=== PATIENT | female | born 1980 | race Caucasian/White ===

== ENCOUNTER 2020-04-23 22:50 | Inpatient (IN) | payer MEDICARE ==
[~2020-04-23] VITALS: Ht 149.9 cm; Wt 112.0 kg
[~2020-04-23 22:50] MED LIST: BACTRIM DS TAB1 EACH; CLINDAMYCIN HCL75 MG; DOXYCYCLINE HY100 MG; PAXIL10 MG; XANAX2 MG PO
--- OUTSIDE RECORDS SUMMARY | 2020-04-23 22:54 | XMS REPORT | Summary of Care ---
Author Author [facility]patient [facility] - [facility] Organization [facility] Address Unknown Phone Unavailable Encounter HQ Encntr_korin(FIN) [id number] Date(s): 06/27/15 - 06/27/15 [facility] Outpatient Imaging - [place] [address] [address] [phone] Discharge Disposition: Home Attending Physician: Levi Lynch MD Vital Signs No data available for this section Problem List Condition Effective Dates Status Health Status Informan t Anxiety(Confirmed) Resolved Back pain, Resolved chronic(Confirmed) Bipolar(Confirmed) Resolved Migraine(Confirmed) Resolved Allergies, Adverse Reactions, Alerts Substance Reaction Severity Status NKDA Active Medications No data available for this section Results No data available for this section Immunizations No data available for this section Procedures Procedure Date Related Diagnosis Body Site Adenoidectomy section Eustachian tuboplasty Gastric operation Tonsillectomy Tubal ligation Social History Social History Type Response Alcohol Never, Previous treatment: None. Alcohol use interferes with work or home: No. Drinks more than intended: No. Ot hers hurt by drinking: No. Ready to change: No. Household alcohol concerns : No. Smoking Status Light tobacco smoker; Expos ure to Tobacco Smoke None; Cigarette Smoking Last 365 Days No; Reg Smoking Cessation Counseling No Assessment and Plan No data available for this section
--- OUTSIDE RECORDS SUMMARY | 2020-04-23 22:54 | XMS REPORT | Continuity of Care Document ---
Author Author [facility] t Organization [facility] Address [address] [place] [address] Phone Unavailable Care Team Providers Care Evaluator Transfer Students Name Role Phone Levi Lynch Attphys Conrad Gordon Attphys Evie Christianson Attphys [phone] Payers Payer Name Policy Type Policy Number Effective Date Expiration Date S ource Problems Condition Name Condition Details Condition Category Status Onset Date Resolution Date Last Treatment Date Treating Clinician Comments Source NECK PAIN NECK PAIN Active 07/24/2014 [facility] Diagnosis Active 2014-07-24 00:00:00 2014-08-21 10:08:00 Mina Steiner ABDOMINAL/NECK PAIN ABDO SHAYNE/NECK PAIN Active 07/23/2014 [facility] Diagnosis Active 2014-07-23 00:00:00 2014-08-22 13:35:00 Mina Steiner Anxiety (finding) Anxi ety (finding) Resolved Problem 06/30/2015 [facility] Problem Resolved 2015-06-30 00:54:58 Mina Steiner Chronic back pain (disorder) C hronic back pain (disorder) Resolved Problem 06/30/2015 [facility] Problem Resolved 2015-06-30 00:54:58 Jorge Alberto Steiner Bipolar (qualifier value) Bipo lar (qualifier value) Resolved Problem 06/30/2015 [facility] Problem Resolved 2015-06-30 00:54:58 Mina Steiner Migraine (disorder) Migr tai (disorder) Resolved Problem 06/30/2015 [facility] Problem Resolved 2015-06-30 00:54:58 [facility] Discharge Diagnosis: Neck pain on left side Discharge Diagnosis: Neck pain on left side 07/24/2014 07/27/2014 [facility] Problem 2014-07-24 05:00:00 2014-07-27 02:48:09 2014-07-27 02:48:09 [facility] Discharge Diagnosis: Nausea & vomiting Discharge Diagnosis: Nausea & vomiting 07/23/2014 07/26/2014 [facility] Problem 2014-07-23 05:00:00 2014-07-26 00:10:18 2014-07-26 00:10:18 [facility] Discharge Diagnosis: Abdominal pain Discharge Diagnosis: Abdominal pain 07/23/2014 07/26/2014 [facility] Problem 2014-07-23 05:00:00 2014-07-26 00:10:18 2014-07-26 00:10:18 [facility] Allergies, Adverse Reactions, Alerts Allergy Name Allergy Type Status Severity Reaction(s) Onset Date Inacti ve Date Treating Clinician Comments Source No Known Allergies DA Active U 2017-12-10 00:00:00 [facility] Social History Social Habit Start Date Stop Date Quantity Comments Source Social History 2014-03-06 18:36:25 2014-03-06 18:36:25 [facility] Medications Ordered Medication Name Filled Medication Name Start Date Stop Da te Current Medication? Ordering Clinician Indication Dosage Frequency Signature (SIG) Comments Components Source GI cocktail 2014-07-24 15:42:00 No 30 mL, Route: PO, Dosing Weight 100, kg, ONCE, STAT, Start date: 07/24/14 10:42:00, Stop date: 07/24/14 10:42:00 [facility] Ibuprofen 2014-07-24 15:22:00 No 600 mg, Route: PO, Drug form: TAB, ONCE, Dosing Weight 100, kg, Priority: STAT, Start date: 07/24/14 10:22:00, Stop date: 07/24/14 10:22:00 [facility] Dilaudid 2014-07-23 21:09:00 No 1 mg, Route: IVP, ONCE, Dosing Weight 100, kg, Priority: STAT, Start date: 07/23/14 16:09:00, Stop date: 07/23/14 16:09:00 [facility] Ondansetron 4 MG Oral Tablet [Zofran] 2014-07-23 20:54:00 Y es 4 mg = 1 tab, PO, BID, Nausea, # 10 tab, 0 Refill(s) [facility] Acetaminophen 325 MG / Hydrocodone Belle trate 7.5 MG Oral Tablet [[place] 7.5/325] 2014-07-23 20:53:00 Yes 1 tab, PO, Q4H, for pain, # 10 tab, 0 Refill(s) [facility] Zofran 2014-07-23 17:44:00 No 4 mg, Route: IVP, Drug form: INJ, ONCE, Dosing Weight 100, kg, Priority: STAT, Start date: 07/23/14 12:44:00, Stop date: 07/23/14 12:44:00 [facility] Dilaudid 2014-07-23 17:43:00 No 1 mg, Route: IVP, ONCE, Dosing Weight 100, kg, Priority: STAT, Start date: 07/23/14 12:43:00, Stop date: 07/23/14 12:43:00 [facility] Ondansetron 2014-07-23 15:08:00 No 4 mg, Route: IVP, ONCE, Dosing Weight 100, kg, Priority: STAT, Start date: 07/23/14 10:08:00, Stop date: 07/23/14 10:08:00 [facility] Hydromorphone 2014-07-23 15:08:00 No 1 mg, Route: IVP, ONCE, Dosing Weight 100, kg, Priority: STAT, Start date: 07/23/14 10:08:00, Stop date: 07/23/14 10:08:00 [facility] Sodium Chloride 0.154 MEQ/ML Injectable Solution 2014-07-23 15:0 8:00 No 1,000 mL, Infuse Over: 1 hr, Route: IV, ONCE, Priority: STAT, Dosing Weight 100 kg, Start date: 07/23/14 10:08:00, Duration: 1 doses or times, Stop date: 07/23/14 10:08:00 [facility] Saline Flush 0.9% 2014-07-23 15:08:00 No Notes: (Same as: BD Posiflush) [facility] Vital Signs Vital Name Observation Time Observation Value Comments Source Systolic (mm Hg) 2014-07-24 16:34:00 [facility] Diastolic (mm Hg) 2014-07-24 16:34:00 [facility] Respitory Rate 2014-07-24 16:34:00 [facility] Heart Rate 2014-07-24 16:34:00 [facility] Temperature Oral (F) 2014-07-24 16:34:00 98.5 F [facility] Weight 2014-07-24 14:30:00 [facility] BMI Calculated 2014-07-24 14:30:00 [facility] Height 2014-07-24 14:30:00 149.86 cm [facility] Systolic (mm Hg) 2014-07-24 14:30:00 [facility] Temperature Oral (F) 2014-07-24 14:30:00 98.2 F [facility] Diastolic (mm Hg) 2014-07-24 14:30:00 [facility] Respitory Rate 2014-07-24 14:30:00 [facility] Heart Rate 2014-07-24 14:30:00 [facility] Heart Rate 2014-07-23 17:50:00 [facility] Respitory Rate 2014-07-23 17:50:00 [facility] Diastolic (mm Hg) 2014-07-23 17:50:00 [facility] Systolic (mm Hg) 2014-07-23 17:50:00 [facility] Diastolic (mm Hg) 2014-07-23 16:59:00 [facility] Systolic (mm Hg) 2014-07-23 16:59:00 [facility] Respitory Rate 2014-07-23 16:59:00 [facility] Heart Rate 2014-07-23 16:59:00 [facility] Diastolic (mm Hg) 2014-07-23 15:56:00 [facility] Heart Rate 2014-07-23 15:56:00 [facility] Respitory Rate 2014-07-23 15:56:00 [facility] Systolic (mm Hg) 2014-07-23 15:56:00 [facility] Height 2014-07-23 14:49:00 149.86 cm [facility] Weight 2014-07-23 14:49:00 [facility] BMI Calculated 2014-07-23 14:49:00 [facility] Temperature Oral (F) 2014-07-23 14:49:00 98.1 F [facility] Procedures Procedure Date / Time Performed Performing Clinician Sourlance e Adenoidectomy [facility] section [facility] Eustachian tuboplasty [facility] ermann Gastric operation [facility] nn Tonsillectomy [facility] Tubal ligation [facility] Encounters Start Date/Time End Date/Time [facility] ID Source 2015-06-27 08:20:00 2015-06-27 23:59:00 Outpatient Levi Saunders [facility] [id number] 2015-06-14 12:02:00 2015-06-14 23:59:00 Outpatient Levi Saunders [facility] [id number] 2015-04-19 14:14:00 2015-04-19 23:59:00 Outpatient Levi Saunders [facility] [id number] 2014-07-24 09:28:00 2014-07-24 11:35:00 Outpatient Rohan Gordon [facility] [place] [id number] 2014-07-23 09:46:00 2014-07-23 17:01:00 Outpatient Sunita Townsend [facility] [id number] Results Test Description Test Time Test Comments Results Result Comments Source CHEM PANEL 2014-07-23 15:05:00 0.8 [facility] CHEM PANEL 2014-07-23 15:05:00 3.9 [facility] CHEM PANEL 2014-07-23 15:05:00 23 [facility] CHEM PANEL 2014-07-23 15:05:00 12.1 [facility] CHEM PANEL 2014-07-23 15:05:00 115 [facility] CHEM PANEL 2014-07-23 15:05:00 97 [facility] CHEM PANEL 2014-07-23 15:05:00 26 [facility] CHEM PANEL 2014-07-23 15:05:00 3.2 [facility] CHEM PANEL 2014-07-23 15:05:00 8.4 [facility] CHEM PANEL 2014-07-23 15:05:00 104 [facility] CHEM PANEL 2014-07-23 15:05:00 138 [facility] CHEM PANEL 2014-07-23 15:05:00 0.7 [facility] CHEM PANEL 2014-07-23 15:05:00 16 [facility] CHEM PANEL 2014-07-23 15:05:00 4.1 [facility] CHEM PANEL 2014-07-23 15:05:00 0.3 [facility] CHEM PANEL 2014-07-23 15:05:00 61 [facility] CHEM PANEL 2014-07-23 15:05:00 10 [facility] CHEM PANEL 2014-07-23 15:05:00 17 [facility] CHEM PANEL 2014-07-23 15:05:00 7.1 [facility] CHEM PANEL 2014-07-23 15:05:00 84 [facility] CHEM PANEL 2014-07-23 15:05:00 51 [facility] HEMATOLOGY 2014-07-23 15:05:00 0.95 [facility] HEMATOLOGY 2014-07-23 15:05:00 Test Item PTT (test code = PTT) 26.5 s 22.9-35.8 [facility] [id number] 15:05:00* Test Item Value Reference Range Interpretation Comments PT (test code = PT) 12.7 s 12.0-14.7 [facility] [id number] 15:05:00* Test Item Value Reference Range Interpretation Comments MCH (test code = MCH) 29.2 pg 27.0-31.0 [facility] [id number] 15:05:39741Qrlayjmt HermannHEMATOLOGY 2014-07-23 15:05:009.5[facility] RbxfoddYREGEKDFTC4128-08-23 15:05:0032.6[facility] XoiupppMEXSIBBEWQ8407-70-71 15:05:0015.4[facility] FvnicykKVVYXEQZLX8193-83-32 15:05:0089.4[facility] CrjroexCFDJWLUUAM9787-81-38 15:05:0012.9[facility] VCPFQUFSHC4508-32-82 15:05:0039.5[facility] XyddhryVQFEVTTVCN5613-27-43 15:05:00 6.9[facility] WjbrcdeMIPUEMSJKD6679-02-90 15:05:004.42[facility]ann[facility]MATOLOGY 2014-07-23 15:05:000.4[facility] OgavlzzIRWKKYPJVD4512-97-45 15:05:000.1[facility] TwjfesuIJBVYIFOJQ9458-59-10 15:05:000.2[facility] GlntmakZUGFLMYVXO4625-24-06 15:05:002.4[facility] PyanwudJMQRMCGGGO0405-56-58 15:05:003.8[facility] TVQPBYFILY2848-20-25 15:05:0055.5[facility] UgwoveiQBIMDHWMBV3558-96-60 15:05:00 1.0[facility] HbcefqqJHHWMSRYHX0506-67-21 15:05:002.8[facility]ann[facility]MATOLOGY 2014-07-23 15:05:006.4[facility] EfmwqpeAOYZCPUGGA3308-75-84 15:05:0034.3[facility] [id number] 15:05:00Negative (07/23/14 10:05 AM)[facility] EZSNE4130-06-11 15:05:00Negative (07/23/14 10:05 AM)[facility] [id number] 15:05:00Negative (07/23/14 10:05 AM)[facility] [id number] 15:05:001.020[facility] STOOL 2014-07-23 15:05:007.0[facility] [id number] 15:05:00Slight *ABN*(07/23/14 10:05 AM)[facility] [id number] 15:05:00Negative *NA*(07/23/14 10:05 AM)[facility] [id number] 15:05:002[facility] NXJRT6105-63-05 15:05:00<1[facility] [id number] 15:05:00Negative (07/23/14 10:05 AM)[facility]
--- OUTSIDE RECORDS SUMMARY | 2020-04-23 22:54 | XMS REPORT | Continuity of Care Document ---
Author Author Vega-ChiMICHELLE Vega-Chi Address Unknown Phone Unavailable Care Team Providers Care Architectural Technologist Name Role Phone [employer] Unavailable Un available Problems Problem Status Onset Date Classification Date Reported Comments Source Discharge Diagnosis: Neck pain on left side 07/24/2014 07/27/2014 [facility] NECK PAIN Active 07/24/2014 [facility] Discharge Diagnosis: Nausea & vomiting 07/23/2014 07/26/2014 [facility] Discharge Diagnosis: Abdominal pain 07/23/2014 07/26/2014 [facility] ABDOMINAL/NECK PAIN Active 07/23/2014 [facility] Anxiety (finding) Resolved Problem 06/30/2015 YUDI [facility] Chronic back pain (disorder) R esolved Problem SAMANTHA [facility] Bipolar (qualifier value) Reso lved Problem SAMANTHA [facility] Migraine (disorder) Resolved Problem 06/30/2015 [facility]ANTHA [facility] Medications Medication Details Route Status Patient Instructions Ordering Provider Order Date Source GI cocktail 30 mL, Route: PO, Dosing Weight 100, kg, ONCE, STAT, Start date: 07/24/14 10:42:00, Stop date: 07/24/14 10:42:00 Inactive 07/24/2014 [facility] Ibuprofen 600 mg, Route: PO, D rug form: TAB, ONCE, Dosing Weight 100, kg, Priority: STAT, Start date: 07/24/14 10:22:00, Stop date: 07/24/14 10:22:00 Inactive 07/24/2014 [facility] Dilaudid 1 mg, Route: IVP, ONC E, Dosing Weight 100, kg, Priority: STAT, Start date: 07/23/14 16:09:00, Stop date: 07/23/14 16:09:00 Inactive 07/23/2014 [facility] Ondansetron 4 MG Oral Tablet [Zofran] 4 mg = 1 tab, PO, BID, Nausea, # 10 tab, 0 Refill(s) Active 07/23/2014 [facility] Acetaminophen 325 MG / Hydrocodone Belle trate 7.5 MG Oral Tablet [[place] 7.5/325] 1 tab, PO, Q4H, for pain, # 10 tab, 0 Re fill(s) Active 07/23/2014 [facility] Zofran 4 mg, Route: IVP, Drug form: INJ, ONCE, Dosing Weight 100, kg, Priority: STAT, Start date: 07/23/14 12:44:00, Stop date: 07/23/14 12:44:00 Inactive 07/23/2014 [facility] Dilaudid 1 mg, Route: IVP, ONC E, Dosing Weight 100, kg, Priority: STAT, Start date: 07/23/14 12:43:00, Stop date: 07/23/14 12:43:00 Inactive 07/23/2014 [facility] Ondansetron 4 mg, Route: IVP, ONCE, Dosing Weight 100, kg, Priority: STAT, Start date: 07/23/14 10:08:00, Stop date: 07/23/14 10:08:00 Inactive 07/23/2014 [facility] Hydromorphone 1 mg, Route: IVP , ONCE, Dosing Weight 100, kg, Priority: STAT, Start date: 07/23/14 10:08:00, Stop date: 07/23/14 10:08:00 Inactive 07/23/2014 [facility] Sodium Chloride 0.154 MEQ/ML Injectable Solution 1,000 mL, Infuse Over: 1 hr, Route: IV, ONCE, Priority: STAT, Dosing Weight 100 kg, Start date: 07/23/14 10:08:00, Duration: 1 doses or times, Stop date: 07/23/14 10:08:00 Inactive 07/23/2014 [facility] Saline Flush 0.9% Notes: (Same as: BD Posiflush) No Longer Active 07/23/2014 [facility] Allergies, Adverse Reactions, Alerts No Known Medication Allergies Immunizations No Data Provided for This Section Results Order Name Results Value Reference Range Date Interpretation Comments Source CHEM PANEL A/G Ratio 0.8 0.7 - 1.6 07/23/2014 [facility] CHEM PANEL Globulin 3.9 2.0 - 4.0 07/23/2014 [facility] CHEM PANEL B/C Ratio 23 6 - 25 07/23/2014 [facility] CHEM PANEL AGAP 12.1 10.0 - 20.0 07/23/2014 [facility] CHEM PANEL eGFR 115 07/23/2014 <sup>1</sup>Result Comment: The eGFR is calculated using the CKD-EPI formula. In most young, healthy individuals the eGFR will be >90 mL/min/1.73m2. The eGFR declines with age. An eGFR of 60-89 may be normal in some populations, particularly the elderly, for whom the CKD-EPI formula has not been extensively validated. Use of the eGFR is not recommended in the following populations:& lt;br/>
Individuals with unstable creatinine concentrations, including patients and those with serious co-morbid conditions.

Patients with extremes in muscle mass or diet.

The data above are obtained from the National Kidney Disease Education Program (NKDEP) which additionally recommends that when the eGFR is used in patients with extremes of body mass index for purposes of drug dosing, the eGFR should be multiplied by the estimated BMI. [facility] CHEM PANEL Glucose Lvl 97 70 - 99 07/23/2014 <sup>2</sup>Interpretive Data: Adult ref erence range values reflect the clinical guidelines
of the [place] [employer]. [facility] CHEM PANEL CO2 26 24 - 32 07/23/2014 [facility] CHEM PANEL Albumin Lvl 3.2 3.5 - 5.0 07/23/2014 [facility] CHEM PANEL Calcium Lvl 8.4 8.5 - 10.5 07/23/2014 [facility] CHEM PANEL Chloride Lvl 104 95 - 109 07/23/2014 [facility] CHEM PANEL Sodium Lvl 138 135 - 145 07/23/2014 [facility] CHEM PANEL Creatinine Lvl 0.7 0.5 - 1.4 07/23/2014 [facility] CHEM PANEL BUN 16 7 - 22 07/23/2014 [facility] CHEM PANEL Potassium Lvl 4.1 3.5 - 5.1 07/23/2014 [facility] CHEM PANEL Bili Total 0.3 0.2 - 1.3 07/23/2014 [facility] CHEM PANEL Alk Phos 61 39 - 136 07/23/2014 [facility] CHEM PANEL AST 10 0 - 37 07/23/2014 [facility] CHEM PANEL ALT 17 0 - 65 07/23/2014 [facility] CHEM PANEL Total Protein 7.1 6.4 - 8.4 07/23/2014 [facility] CHEM PANEL Lipase Lvl 84 73 - 393 07/23/2014 [facility] CHEM PANEL Amylase Lvl 51 25 - 115 07/23/2014 [facility] INR 0.95 0.85 - 1.17 07/23/2014 <sup>3</sup>Interpretive Data: RECOMMEND ED RANGES FOR PROTIME INR:
2.0- 3.0 for most medical and surgical thromboembolic states.
2.5-3.5 for artificial heart valves and recurrent embolism.

INR SHOULD BE USED ONLY FOR PATIENTS ON STABLE ANTICOAGULANT THERAPY. [facility] PTT 26.5 22.9 - 35.8 07/23/2014 <sup>4</sup>Interpretive Data: Heparin T herapeutic Range: 57 - 92 Seconds [facility] PT 12.7 12.0 - 14.7 07/23/2014 [facility] MCH 29.2 27.0 - 31.0 07/23/2014 [facility] Platelet 172 133 - 450 07/23/2014 [facility] MPV 9.5 7.4 - 10.4 07/23/2014 [facility] MCHC 32.6 32.0 - 36.0 07/23/2014 [facility] RDW 15.4 11.5 - 14.5 07/23/2014 [facility] MCV 89.4 80.0 - 98.0 07/23/2014 [facility] Hgb 12.9 12.0 - 16.0 07/23/2014 [facility] Hct 39.5 36.0 - 48.0 07/23/2014 [facility] WBC 6.9 3.7 - 10.4 07/23/2014 [facility] RBC 4.42 4.20 - 5.40 07/23/2014 [facility] Monocytes # 0.4 0.0 - 0.8 07/23/2014 [facility] Basophils # 0.1 0.0 - 0.2 07/23/2014 [facility] Eosinophils # 0.2 0.0 - 0.5 07/23/2014 [facility] Lymphocytes # 2.4 1.0 - 5.5 07/23/2014 [facility] Segs-Bands # 3.8 1.5 - 8.1 07/23/2014 [facility] HEMATOLOGY Segs 55.5 45.0 - 75.0 07/23/2014 [facility] HEMATOLOGY Basophils 1.0 0.0 - 1.0 07/23/2014 [facility] HEMATOLOGY Eosinophils 2.8 0.0 - 4.0 07/23/2014 [facility] HEMATOLOGY Monocytes 6.4 2.0 - 12.0 07/23/2014 [facility] HEMATOLOGY Lymphocytes 34.3 20.0 - 40.0 07/23/2014 [facility] URINE AND STOOL UA Color Ltyellow 07/23/2014 [facility] URINE AND STOOL UA Urobilinogen <=1.0 mg/dL 0.1 - 1.0 07/23/2014 [facility] URINE AND STOOL UA Mucus Few /LPF None Seen /LPF 07/23/2014 [facility] URINE AND STOOL UA Nitrite Negative (07/23/14 10:05 AM) Negative 07/23/2014 [facility] URINE AND STOOL UA Blood Negative (07/23/14 10:05 AM) Negative 07/23/2014 [facility] URINE AND STOOL UA Leuk Est Negative (07/23/14 10:05 AM) Negative 07/23/2014 [facility] URINE AND STOOL UA Spec Grav 1.020 <=1.030 07/23/2014 [facility] URINE AND STOOL UA pH 7.0 5.0 - 8.0 07/23/2014 [facility] URINE AND STOOL UA Turbidity Slight *ABN* (07/23/14 10:05 AM) Clear 07/23/2014 [facility] URINE AND STOOL UA Protein Negative mg/dL Negative mg/dL 07/23/2014 [facility] URINE AND STOOL UA Glucose Negative mg/dL Negative mg/dL 07/23/2014 [facility] URINE AND STOOL UA Ketones Negative mg/dL Negative mg/dL 07/23/2014 [facility] URINE AND STOOL UA Bili Negative *NA* (07/23/14 10:05 AM) Negative 07/23/2014 [facility] URINE AND STOOL UA Bacteria Occasional /HPF None Seen /HPF 07/23/2014 [facility] URINE AND STOOL UA RBC 2 0 - 2 07/23/2014 [facility] URINE AND STOOL UA Sq Epi Few /LPF Few /LPF 07/23/2014 [facility] URINE AND STOOL UA WBC <1 0 - 5 07/23/2014 [facility] URINE CHEM U Preg Negat tina (07/23/14 10:05 AM) Negative 07/23/2014 [facility] Pathology Reports No Data Provided for This Section Diagnostic Reports Report Value Date Source Knee wo contrast MRI EXAMINATI ON: MRI of the right knee without contrast. HISTORY: Anterior right knee pain and swelling; painful with flexion and extension; history of fall 2-3 weeks ago FINDINGS: Radiographs dated 03/15/2012 are reviewed. Multiplanar, multisequence magnetic resonance imaging of the right knee is performed with a local coil without contrast. Menisci: Medial: Intact. Lateral: Intact. Ligaments: The anterior cruciate ligament is normal. There is mild increased signal intensity within the posterior cruciate ligament which remains intact. The collateral ligaments are intact. Extensor mechanism: The extensor mechanism is intact. Muscles: There is normal signal intensity and muscle bulk of the musculature at the knee. Cartilage: There is no focal chondrosis or subchondral marrow edema. Bone: No fractures identified. There is a 9 mm benign appearing T2 hyperintense, T1 hypointense ovoid lesion within the intramedullary distal femoral diaphysis. Soft tissues: There is a small knee effusion without Ferrera's cyst. IMPRESSION: 1. Mild increased signal intensity withi n the right knee posterior cruciate ligament which remains intact. This is nonspecific, but may potentially represent a low grade (grade 1) PCL sprain. 2. Small right knee effusion. 3. Benign appearing T2 hyperintense ovoi d lesion within the intramedullary distal right femoral diaphysis likely representing a low grade chondroid lesion such as an enchondroma or chondroid rest. 4. Otherwise, unremarkable MR examinatio n of the right knee. Specifically, the right knee menisci and collateral ligaments are intact and there is no right knee chondrosis. 06/27/2015 SAMANTHA Kaiser Neck soft tissue w contrast CT EXAM: CT OF THE NECK SOFT TISSUES WITH CONTRAST DATE: Jun 22, 2014 11:11:33 AM . CLINICAL INDICATION: Swelling, neck pain TECHNIQUE: Thin section axial images are obtained from aortic arch to the middle cranial fossa after uncomplicated IV administration of 100 cc Omnipaque. Axial, sagittal, coronal images are interpreted. DLP- 446 mGy-cm COMPARISON: Unavailable FINDINGS: Aerodigestive tract: No mucosal lesion, contour abnormality, asymmetry, or disruption of fat planes. The tongue base and soft palate are prominently narrowing the nasopharyngeal airway. Lymph nodes:Within normal limits. Salivary glands: Within normal limits. Vascular structures: Within normal limits. Thyroid: Within normal limits. Paranasal sinuses: Within normal limits. Intracranial compartment: Within normal limits. Subcutaneous tissues: Small focus of subcutaneous fat stranding in the midline submental region. Otherwise unremarkable nubia. Regional skeleton: Within normal limits. Lung apices: Within normal limits. IMPRESSION: 1. Minimal midline submental skin thicke luis and fat stranding may represent cellulitis or scarring. 2. Otherwise no acute abnormality in the neck. 3. Physiologic prominence of the tongue base and soft palate narrowing the oropharyngeal airway. 06/14/2015 SAMANTHA Kaiser Consultation Notes No Data Provided for This Section Discharge Summaries No Data Provided for This Section History and Physicals No Data Provided for This Section Vital Signs Vital Sign Value Date Comments Source Systolic (mm Hg) 130 07/24/2014 [facility] Diastolic (mm Hg) 75 07/24/2014 [facility] Respitory Rate 17 07/24/2014 [facility] Heart Rate 49 07/24/2014 [facility] Temperature Oral (F) 98.5 F 07/24/2014 [facility] Weight 100 07/24/2014 [facility] BMI Calculated 44.53 07/24/2014 [facility] Height 149.86 cm 07/24/2014 [facility] Systolic (mm Hg) 177 07/24/2014 [facility] Temperature Oral (F) 98.2 F 07/24/2014 [facility] Diastolic (mm Hg) 100 07/24/2014 [facility] Respitory Rate 18 07/24/2014 [facility] Heart Rate 70 07/24/2014 [facility] Heart Rate 49 07/23/2014 [facility] Respitory Rate 16 07/23/2014 [facility] Diastolic (mm Hg) 72 07/23/2014 [facility] Systolic (mm Hg) 132 07/23/2014 [facility] Diastolic (mm Hg) 64 07/23/2014 [facility] Systolic (mm Hg) 127 07/23/2014 [facility] Respitory Rate 17 07/23/2014 [facility] Heart Rate 46 07/23/2014 [facility] Diastolic (mm Hg) 96 07/23/2014 [facility] Heart Rate 43 07/23/2014 [facility] Respitory Rate 16 07/23/2014 [facility] Systolic (mm Hg) 142 07/23/2014 [facility] Height 149.86 cm 07/23/2014 [facility] Weight 100 07/23/2014 [facility] BMI Calculated 44.53 07/23/2014 [facility] Temperature Oral (F) 98.1 F 07/23/2014 [facility] Encounters Location Location Details Encounter Type Encounter Number Reason For Visit Attending Provider ADM Date DC Date Status Source [facility] [id number] 04 Sunita Christianson 07/23/2014 07/23/2014 [facility] [id number] Rohan Gordon 07/24/2014 07/24/2014 [facility] [place] [facility] [id number] Yaw Alexis-Che 04/19/2015 04/20/2015 [facility] [place] [facility] [id number] 01 Yaw Alexis-Che 06/14/2015 06/15/2015 [facility] [place] [facility] [id number] 02 Yaw Alexis-Che 06/27/2015 06/28/2015 [facility] Procedures Procedure Code Date Perfomer Comments Source Adenoidectomy 939077768 [facility] section [id number] [facility] Eustachian tuboplasty [id number] [facility] Gastric operation [id number] [facility] Tonsillectomy [id number] [facility] Tubal ligation [id number] [facility] [place] Assessment and Plan No Data Provided for This Section Plan of Care No Data Provided for This Section Social History Social History Date Source Social History TypeResponse Alcohol Use: Never, Previous treatment: None, Has alcohol use interfered with work or home life? No, Do you ever drink more than intended? No, Has anyone been hurt or at risk by your drinking? No, Ready to change: No, Concerns about alcohol use in household: No Smoking Status Light tobacco smoker, Exposure to Tobacco Smoke None, Cigarette Smoking Last 365 Days No, Reg Smoking Cessation Counseling No 03/06/2014 [facility] Social History TypeResponse Alcohol Never, Previous treatment: None. Alcohol use interferes with work or home: No. Drinks more than intended: No. Others hurt by drinking: No. Ready to change: No. Household alcohol concerns: No. Smoking Status Light tobacco smoker; Exposure to Tobacco Smoke None; Cigarette Smoking Last 365 Days No; Reg Smoking Cessation Counseling No 03/06/2014 SAMANTHA Kaiser Family History No Data Provided for This Section Advance Directives No Data Provided for This Section Functional Status No Data Provided for This Section
--- OUTSIDE RECORDS SUMMARY | 2020-04-23 22:54 | XMS REPORT | Summary of Care ---
Author Organization Unknown Address Unknown Phone Unavailable Encounter [facility] Cjr_korin(FIN) [id number] Date(s): 04/19/15 - 04/19/15 [facility] Outpatient Imaging - [place] [address] [address]- [facility] [place] [phone] Discharge Disposition: Home Physician Attending: Levi Lynch MD Vital Signs No data [...]
--- OUTSIDE RECORDS SUMMARY | 2020-04-23 22:54 | XMS REPORT | Summary of Care ---
Author Author [facility] - [facility] Organization [facility] - [facility] Address Unknown Phone Unavailable Encounter [facility] Thom_korin(FIN) [id number] Date(s): 06/14/15 - 06/14/15 [facility] Outpatient Imaging - [place] [address] [id number] [phone] Discharge Disposition: Home Attending Physician: Levi Lynch [...]
--- OUTSIDE RECORDS SUMMARY | 2020-04-23 22:54 | XMS REPORT | Summary of Care ---
Author Organization Unknown Address Unknown Phone Unavailable Encounter [facility]) [id number] Date(s): 07/23/14 - 07/23/14 [facility] [address] Discharge Diagnosis: Nausea & vomiting Discharge Diagnosis: Abdominal pain Discharge Disposition: Home Physician Attending: Sunita Christianson DO Reason for Visit ABDOMINAL/NECK PAIN Vital Signs 1 2 3 Most recent to oldest [Reference Range]: 149.86 cm (07/23/14 9:49 AM) Height 98.1 DegF (07/23/14 9:49 AM) Temperature Oral [96.4-99.1 DegF] 132 mmHg (07/23/14 12:50 PM) 127 mmHg (07/23/14 11:59 AM) 142 mmHg *HI* (07/23/14 10:56 AM) Systolic Blood Pressure [90-140 mmHg] 72 mmHg (07/23/14 12:50 PM) 64 mmHg (07/23/14 11:59 AM) 96 mmHg *HI* (07/23/14 10:56 AM) Diastolic Blood Pressure [60-90 mmHg] 16 BRMIN (07/23/14 12:50 PM) 17 BRMIN (07/23/14 11:59 AM) 16 BRMIN (07/23/14 10:56 AM) Respiratory Rate [14-20 BRMIN] 49 bpm *LOW* (07/23/14 12:50 PM) 46 bpm *LOW* (07/23/14 11:59 AM) 43 bpm *LOW* (07/23/14 10:56 AM) Peripheral Pulse Rate [60-100 bpm] 100 kg (07/23/14 9:49 AM) Weight 44.53 m2 (07/23/14 9:49 AM) Body Mass Index Problem List Condition Effective Dates Status Health Status Informan t Anxiety(Confirmed) Resolved Back pain, Resolved chronic(Confirmed) Bipolar(Confirmed) Resolved Migraine(Confirmed) Resolved Allergies, Adverse Reactions, Alerts Substance Reaction Severity Status NKDA Active Medications Dilaudid 1 mg, Route: IVP, ONCE, Dosing Weight 100, kg, Priority: STAT, Start date: 07/23 12:43:00, Stop date: 07/23/14 12:43:00 Start Date: 07/23/14 Stop Date: 07/23/14 Status: Completed Dilaudid 1 mg, Route: IVP, ONCE, Dosing Weight 100, kg, Priority: STAT, Start date: 07/23 16:09:00, Stop date: 07/23/14 16:09:00 Start Date: 07/23/14 Stop Date: 07/23/14 Status: Completed hydromorphone 1 mg, Route: IVP, ONCE, Dosing Weight 100, kg, Priority: STAT, Start date: 07/23 10:08:00, Stop date: 07/23/14 10:08:00 Start Date: 07/23/14 Stop Date: 07/23/14 Status: Completed Dickerson 7.5/325 oral tablet 1 tab, PO, Q4H, for pain, # 10 tab, 0 Refill(s) Start Date: 07/23/14 Status: Ordered ondansetron 4 mg, Route: IVP, ONCE, Dosing Weight 100, kg, Priority: STAT, Start date: 07/23 10:08:00, Stop date: 07/23/14 10:08:00 Start Date: 07/23/14 Stop Date: 07/23/14 Status: Completed Saline Flush 0.9% 10 mL, Route: IVP, Drug Form: INJ, Dosing Weight 100, kg, PRN, PRN Line Flush, S tart date: 07/23/14 10:08:00, Duration: 30 day, Stop date: 08/22/14 10:07:00 Notes: (Same as: BD Posiflush) Start Date: 07/23/14 Stop Date: 07/24/14 Status: Discontinued Sodium Chloride 0.9% (Bolus) IV 1,000 mL, Infuse Over: 1 hr, Route: IV, ONCE, Priority: STAT, Dosing Weight 100 kg, Start date: 07/23/14 10:08:00, Duration: 1 doses or times, Stop date: 10:08:00 Start Date: 07/23/14 Stop Date: 07/23/14 Status: Completed Zofran 4 mg, Route: IVP, Drug form: INJ, ONCE, Dosing Weight 100, kg, Priority: STAT, S tart date: 07/23/14 12:44:00, Stop date: 07/23/14 12:44:00 Start Date: 07/23/14 Stop Date: 07/23/14 Status: Completed Zofran 4 mg oral tablet 4 mg = 1 tab, PO, BID, Nausea, # 10 tab, 0 Refill(s) Start Date: 07/23/14 Status: Ordered Results ELECTROLYTES Most recent to 1 oldest [Reference Range]: Sodium Lvl [135-145 138 mEq/L mEq/L] (07/23/14 10:05 AM) Potassium Lvl 4.1 mEq/L [3.5-5.1 mEq/L] (07/23/14 10:05 AM) Chloride Lvl [95-109 104 mEq/L mEq/L] (07/23/14 10:05 AM) CO2 [24-32 mEq/L] 26 mEq/L (07/23/14 10:05 AM) AGAP [10.0-20.0 12.1 mEq/L mEq/L] (07/23/14 10:05 AM) CHEM PANEL Most recent to 1 oldest [Reference Range]: Creatinine Lvl 0.7 mg/dL [0.5-1.4 mg/dL] (07/23/14 10:05 AM) eGFR 115 mL/min/1.73m2 1 *NA* (07/23/14 10:05 AM) BUN [7-22 mg/dL] 16 mg/dL (07/23/14 10:05 AM) B/C Ratio [6-25] 23 (07/23/14 10:05 AM) Glucose Lvl [70-99 97 mg/dL 2 mg/dL] (07/23/14 10:05 AM) Total Protein 7.1 g/dL [6.4-8.4 g/dL] (07/23/14 10:05 AM) Albumin Lvl [3.5-5.0 3.2 g/dL g/dL] *LOW* (07/23/14 10:05 AM) Globulin [2.0-4.0 3.9 g/dL g/dL] (07/23/14 10:05 AM) A/G Ratio [0.7-1.6] 0.8 (07/23/14 10:05 AM) Calcium Lvl 8.4 mg/dL [8.5-10.5 mg/dL] *LOW* (07/23/14 10:05 AM) ALT [0-65 unit/L] 17 unit/L (07/23/14 10:05 AM) AST [0-37 unit/L] 10 unit/L (07/23/14 10:05 AM) Alk Phos [39-136 61 unit/L unit/L] (07/23/14 10:05 AM) Bili Total [0.2-1.3 0.3 mg/dL mg/dL] (07/23/14 10:05 AM) Amylase Lvl [25-115 51 unit/L unit/L] (07/23/14 10:05 AM) Lipase Lvl [73-393 84 unit/L unit/L] (07/23/14 10:05 AM) 1Result Comment: The eGFR is calculated using the CKD-EPI formula. In most young, healthy individuals the eGFR will be >90 mL/min/1.73m2. The eGFR declines with age. An eGFR of 60-89 may be normal in some populations, particularly the elderly, for whom the CKD-EPI formula has not been extensively validated. Use of the eGFR is not recommended in the following populations: Individuals with unstable creatinine concentrations, including patients and those with serious co-morbid conditions. Patients with extremes in muscle mass or diet. The data above are obtained from the National Kidney Disease Education Program ( NKDEP) which additionally recommends that when the eGFR is used in patients with extremes of body mass index for purposes of drug dosing, the eGFR should be mul tiplied by the estimated BMI. 2Interpretive Data: Adult reference range values reflect the clinical guidelines of the [place] [employer]. URINE CHEM Most recent to 1 oldest [Reference Range]: U Preg [Negative] Negative (07/23/14 10:05 AM) URINE AND STOOL Most recent to 1 oldest [Reference Range]: UA Turbidity [Clear] Slight *ABN* (07/23/14 10:05 AM) UA Color Ltyellow *NA* (07/23/14 10:05 AM) UA pH [5.0-8.0] 7.0 (07/23/14 10:05 AM) UA Spec Grav 1.020 [<=1.030] (07/23/14 10:05 AM) UA Glucose [Negative Negative mg/dL mg/dL] *NA* (07/23/14 10:05 AM) UA Blood [Negative] Negative (07/23/14 10:05 AM) UA Ketones [Negative Negative mg/dL mg/dL] *NA* (07/23/14 10:05 AM) UA Protein [Negative Negative mg/dL mg/dL] (07/23/14 10:05 AM) UA Urobilinogen <=1.0 mg/dL [0.1-1.0 mg/dL] *NA* (07/23/14 10:05 AM) UA Bili [Negative] Negative *NA* (07/23/14 10:05 AM) UA Leuk Est Negative [Negative] (07/23/14 10:05 AM) UA Nitrite Negative [Negative] (07/23/14 10:05 AM) UA WBC [0-5 /HPF] <1 /HPF (07/23/14 10:05 AM) UA RBC [0-2 /HPF] 2 /HPF (07/23/14 10:05 AM) UA Bacteria [None Occasional /HPF Seen /HPF] *NA* (07/23/14 10:05 AM) UA Sq Epi [Few /LPF] Few /LPF *NA* (07/23/14 10:05 AM) UA Mucus [None Seen Few /LPF /LPF] *NA* (07/23/14 10:05 AM) HEMATOLOGY Most recent to 1 oldest [Reference Range]: WBC [3.7-10.4 K/CMM] 6.9 K/CMM (07/23/14 10:05 AM) RBC [4.20-5.40 4.42 M/CMM M/CMM] (07/23/14 10:05 AM) Hgb [12.0-16.0 g/dL] 12.9 g/dL (07/23/14 10:05 AM) Hct [36.0-48.0 %] 39.5 % (07/23/14 10:05 AM) MCV [80.0-98.0 fL] 89.4 fL (07/23/14 10:05 AM) MCH [27.0-31.0 pg] 29.2 pg (07/23/14 10:05 AM) MCHC [32.0-36.0 32.6 g/dL g/dL] (07/23/14 10:05 AM) RDW [11.5-14.5 %] 15.4 % *HI* (07/23/14 10:05 AM) Platelet [133-450 172 K/CMM K/CMM] (07/23/14 10:05 AM) MPV [7.4-10.4 fL] 9.5 fL (07/23/14 10:05 AM) Segs [45.0-75.0 %] 55.5 % (07/23/14 10:05 AM) Lymphocytes 34.3 % [20.0-40.0 %] (07/23/14 10:05 AM) Monocytes [2.0-12.0 6.4 % %] (07/23/14 10:05 AM) Eosinophils [0.0-4.0 2.8 % %] (07/23/14 10:05 AM) Basophils [0.0-1.0 1.0 % %] (07/23/14 10:05 AM) Segs-Bands # 3.8 K/CMM [1.5-8.1 K/CMM] (07/23/14 10:05 AM) Lymphocytes # 2.4 K/CMM [1.0-5.5 K/CMM] (07/23/14 10:05 AM) Monocytes # [0.0-0.8 0.4 K/CMM K/CMM] (07/23/14 10:05 AM) Eosinophils # 0.2 K/CMM [0.0-0.5 K/CMM] (07/23/14 10:05 AM) Basophils # [0.0-0.2 0.1 K/CMM K/CMM] (07/23/14 10:05 AM) PT [12.0-14.7 12.7 seconds seconds] (07/23/14 10:05 AM) INR [0.85-1.17] 0.95 3 (07/23/14 10:05 AM) PTT [22.9-35.8 26.5 seconds 4 seconds] (07/23/14 10:05 AM) 3Interpretive Data: RECOMMENDED RANGES FOR PROTIME INR: 2.0-3.0 for most medical and surgical thromboembolic states. 2.5-3.5 for artificial heart valves and recurrent embolism. INR SHOULD BE USED ONLY FOR PATIENTS ON STABLE ANTICOAGULANT THERAPY. 4Interpretive Data: Heparin Therapeutic Range: 57 - 92 Seconds Medications Administered During Your Visit No data available for this section Immunizations No data available for this section Procedures Procedure Type Body Site Date of Procedure Related Diag nosis Tubal ligation Social History Social History Type Response Alcohol Use: Never, Previous treatm ent: None, Has alcohol use interfered with work or home life? No, Do you ever drink mor e than intended? No, Has anyone been hurt or at risk by your drinking? No, R liu to change: No, Concerns about alcohol use in household: No Smoking Status Light tobacco smoker, Expos ure to Tobacco Smoke None, Cigarette Smoking Last 365 Days No, Reg Smoking Cessation Counseling No
--- OUTSIDE RECORDS SUMMARY | 2020-04-23 22:54 | XMS REPORT | Summary of Care ---
Author Organization Unknown Address Unknown Phone Unavailable Encounter DEBORA Abad(MARIE) [id number] Date(s): 07/24/14 - 07/24/14 [facility] [address] Discharge Diagnosis: Neck pain on left side Discharge Disposition: Home Physician Attending: Rohan Gordon MD Reason for Visit NECK PAIN Vital Signs Most recent to 1 2 oldest [Reference Range]: Height 149.86 cm (07/24/14 9:30 AM) Temperature Oral 98.5 DegF 98.2 DegF [96.4-99.1 DegF] (07/24/14 11:34 AM) (07/24/14 9:30 AM) Systolic Blood 130 mmHg 177 mmHg Pressure [90-140 (07/24/14 11:34 AM) *HI* mmHg] (07/24/14 9:30 AM) Diastolic Blood 75 mmHg 100 mmHg Pressure [60-90 (07/24/14 11:34 AM) *HI* mmHg] (07/24/14 9:30 AM) Respiratory Rate 17 BRMIN 18 BRMIN [14-20 BRMIN] (07/24/14 11:34 AM) (07/24/14 9:30 AM) Peripheral Pulse 49 bpm 70 bpm Rate [60-100 bpm] *LOW* (07/24/14 9:30 AM) (07/24/14 11:34 AM) Weight 100 kg (07/24/14 9:30 AM) Body Mass Index 44.53 m2 (07/24/14 9:30 AM) Problem List Condition Effective Dates Status Health Status Informan t Anxiety(Confirmed) Resolved Back pain, Resolved chronic(Confirmed) Bipolar(Confirmed) Resolved Migraine(Confirmed) Resolved Allergies, Adverse Reactions, Alerts Substance Reaction Severity Status NKDA Active Medications GI cocktail 30 mL, Route: PO, Dosing Weight 100, kg, ONCE, STAT, Start date: 07/24/14 10:42: 00, Stop date: 07/24/14 10:42:00 Start Date: 07/24/14 Stop Date: 07/24/14 Status: Completed ibuprofen 600 mg, Route: PO, Drug form: TAB, ONCE, Dosing Weight 100, kg, Priority: STAT, Start date: 07/24/14 10:22:00, Stop date: 07/24/14 10:22:00 Start Date: 07/24/14 Stop Date: 07/24/14 Status: Completed Medications Administered During Your Visit No data available for this section Immunizations No data available for this section Social History Social History Type Response Alcohol [...]
[2020-04-23] MEDS ORDERED: SODIUM CHLORIDE 0.9% 1000ML 1,000 ML IV STA (23:54)
--- NOTE | 2020-04-23 23:57 | Emergency Department Note ---
History of Present Illnes History of Present Illness Chief Complaint: General Medicine Complaints History of Present Illness This is a 39 year old female presents to the ED for dizizness and pre- syncopal episode which started at 2130. Denies CP or SOB. Witnesses stated that patient had ocular deviation upwards with R sided shaking . 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 Any updates have been documented here. Past Medical History Recent Fever: No Clinical Suspicion of Infectio: No New/Unexplained Change in Ment: No Other Surgery: LAP BAND 2009, 2003,2007 TONSILS REMOVED 1989 Social History Smoking Cessation: Current every day smoker Counseling Performed: Yes Alcohol Use: Social Any Illegal Drug Use: No Other Last Tetanus: LESS THAN FIVE YEARS. Review of Systems Review of Systems Constitutional: Reports malaise EENTM: Reports no symptoms Cardiovascular: Reports no symptoms Respiratory: Reports no symptoms Gastrointestinal: Reports no symptoms Genitourinary: Reports no symptoms Musculoskeletal: Reports no symptoms Integumentary: Reports no symptoms Neurological: Reports no symptoms Psychological: Reports no symptoms Endocrine: Reports no symptoms Hematological/Lymphatic: Reports no symptoms Review of other systems All other systems reviewed and negative. Physical Exam Related Data Allergies: Coded Allergies: No Known Allergies (Unverified , 01/04/13) Triage Vital Signs Vital Signs Date Time Temp Pulse Resp B/P (MAP) Pulse Ox O2 Delivery O2 Flow Rate FiO2 04/23/20 23:49 97.5 60 20 142/95 99 Vital signs reviewed: Yes Physical Exam CONSTITUTIONAL Constitutional: Reports morbidly obese HENT HENT: Reports normocephalic, Reports atraumatic, Reports oropharynx clear/moist, Reports nose normal HENT L/R: Reports left ext ear normal, Reports right ext ear normal EYES Eyes: Reports PERRL, Reports conjunctivae normal NECK Neck: Reports ROM normal PULMONARY Pulmonary: Reports effort normal, Reports breath sounds normal CARDIOVASCULAR Cardiovascular: Reports heart sounds normal, Reports capillary refill normal, Reports normal rate, Reports bradycardia GASTROINTESTINAL Abdominal: Reports soft, Reports nontender, Reports bowel sounds normal GENITOURINARY Genitourinary: Reports exam deferred SKIN Skin: Reports warm, Reports dry MUSCULOSKELETAL Musculoskeletal: Reports ROM normal NEUROLOGICAL Neurological: Reports alert, Reports oriented x 3, Reports no gross motor or se nsory deficits PSYCHOLOGICAL Psychological: Reports mood/affect normal, Reports judgement normal Results Laboratory Lab results reviewed: Yes Laboratory comments Laboratory Tests Test 04/24/20 19:50 Creatine Kinase 56 IU/L (29-168) Creatine Kinase MB 0.60 ng/mL (0-5.0) Troponin I 0.037 ng/mL (0-0.300) Imaging Imaging results reviewed: Yes Impressions [place] [address] Patient Name: MICHELLE LEONARD MR #: [id number] : 1980 Age/Sex: 39/F Req #: [id number] Adm Physician: Ordered by: JERAD LEGER DO Report #: [id number] Location: ER Room/Bed: Procedure: [id number] CT/CT BRAIN WO Exam Date: 04/24/20 Exam Time: 0105 REPORT STATUS: Signed Examination: CT head without contrast Clinical Indication: Syncope. Technique: Transaxial noncontrast images from the skull base through the vertex were obtained. Sagittal and coronal reformatted images were done. Dose modulation, iterative reconstruction, and/or weight based adjustment of the mA/kV was utilized to reduce the radiation dose to as low as reasonably achievable. Comparison: None. Findings: Scalp: No abnormalities. Bones: Intact. No fractures. No blastic or lytic lesions. Brain sulci: Appropriate for patient's age. Ventricles: Normal in size and configuration. No hydrocephalus. Extra-axial space: No abnormalities. Parenchyma: A 1cm dilated perivascular space at the inferior margin of the right putamen. No masses, hemorrhage, or acute or chronic cortical based vascular insults. Suprasellar region: No abnormalities. Craniocervical junction: The foramen magnum is patent. No Chiari one malformation. Impression: No intracranial abnormality. Signed by: Dr. Sharyn Ramirez M.D. on 04/24/2020 1:37 AM Dictated By: SHARYN VALLES MD 6 Transcribed By: ROSINA on 04/24/20136 COPY TO: JERAD LEGER DO~ [place] [address] Patient Name: MICHELLE LEONARD MR #: [id number] : 1980 Age/Sex: 39/F Req #: [id number] Adm Physician: Ordered by: JERAD LEGER DO Report #: [id number] Location: ER Room/Bed: Procedure: [id number] DX/CHEST SINGLE (NOT PORTABLE) Exam Date: 04/24/20 Exam Time: 9 REPORT STATUS: Signed EXAMINATION: CHEST SINGLE (NOT PORTABLE) INDICATION: ^ERMD ORDER ^[id number] ^0010 ^Y COMPARISON: None FINDINGS: AP view TUBES and LINES: None. LUNGS: Lungs are well inflated. There is no evidence of pneumonia or pulmonary edema. PLEURA: No pleural effusion or pneumothorax. HEART AND MEDIASTINUM: The cardiomediastinal silhouette is unremarkable. BONES AND SOFT TISSUES: No acute osseous lesion. Soft tissues are unremarkable. UPPER ABDOMEN: No free air under the diaphragm. IMPRESSION: No acute thoracic abnormality. Signed by: Dr. Brandan Ramirez MD on 04/24/2020 12:28 AM Dictated By: BRANDAN RAMIREZ MD Transcribed By: ROSINA on 04/24/2027 COPY TO: JERAD LEGER DO~ Procedures 12 Lead ECG Interpretation ECG Interpretation : ECG: ECG 1 Outpatient Receptionist: Interpreted by ED physician Date: Apr 24, 2020 Time: 00:13 Rhythm: sinus bradycardia Rate: bradycardia BPM: 48 ST segments normal: Yes T waves normal: Yes Clinical Impression: abnormal ECG Assessment & Plan Medical Decision Making MDM New onset of sycope. cardiac work up with CT head . Patient noted to be bradycardic on monitoring specialist . Plan to admit to the hospital for cardiac evaluation Assessment & Plan Final Impression: (1) Dizziness (2) Bradycardia Depart Disposition: ADMITTED Last Vital Signs Date Time Temp Pulse Resp B/P (MAP) Pulse Ox O2 Delivery O2 Flow Rate FiO2 04/25/20 00:00 97.8 63 18 116/93 (101) 100 Home Meds Reported Medications Fluoxetine Hcl (PROZAC) 40 Mg Capsule, 40 MG PO DAILY, #30 TAB 04/24/20 Alprazolam (XANAX) 2 Mg Tablet, PO TID 01/02/13 Discontinued Reported Medications Doxycycline Hyclate (DOXYCYCLINE HYCLATE) 100 Mg Capsule 01/04/13 Paroxetine Hcl (PAXIL) 10 Mg Tablet 01/02/13 Medications in the ED Sodium Chloride 1,000 ml @ 0 mls/hr Q0M STAT IV Last administered on 04/24/20at 00:50; Admin Dose 1,000 MLS/HR; Start 04/23/20 at 23:54; Stop 04/23/20 at 23:56; Status DC Aspirin 81 mg PRN ONCE PO ; Start 04/24/20 at 00:00; Stop 04/24/20 at 00:01; Status DC JERAD LEGER DO Apr 23, 2020 23:57
[2020-04-24 00:27] LABS: BASOPHILS # (AUTO) 0.1 (0.0-0.1); BASOPHILS % 0.6 % (0.0-1.0); EOSINOPHILS # (AUTO) 0.1 (0.0-0.4); EOSINOPHILS % 0.4 % (0.0-6.0); HEMATOCRIT 39.8 % (34.2-44.1); HEMOGLOBIN 11.9 g/dL (12.0-16.0); LYMPHOCYTES # (AUTO) 1.7 (1.0-3.2); LYMPHOCYTES % 13.4 % (18.0-39.1); MEAN CORPUSCULAR HEMOGLOBIN 24.5 pg (28-32); MEAN CORPUSCULAR HGB CONC 29.9 g/dL (31-35); MEAN CORPUSCULAR VOLUME 81.9 fL (81-99); MONOCYTES # (AUTO) 0.9 (0.2-0.8); MONOCYTES % 6.8 % (4.4-11.3); NEUTROPHILS # (AUTO) 9.8 (2.1-6.9); NEUTROPHILS % 78.4 % (38.7-80.0); PLATELET COUNT 244 x10e3/uL (140-360); RED BLOOD COUNT 4.86 x10e6/uL (3.6-5.1); RED CELL DISTRIBUTION WIDTH 18.7 % (11.7-14.4)
--- NOTE | 2020-04-24 00:32 | Diagnostic Imaging Report ---
EXAMINATION: CHEST SINGLE (NOT PORTABLE) INDICATION: ^ERMD ORDER ^[id number] ^0010 ^Y COMPARISON: None FINDINGS: AP view TUBES and LINES: None. LUNGS: Lungs are well inflated. There is no evidence of pneumonia or pulmonary edema. PLEURA: No pleural effusion or pneumothorax. HEART AND MEDIASTINUM: The cardiomediastinal silhouette is unremarkable. BONES AND SOFT TISSUES: No acute osseous lesion. Soft tissues are unremarkable. UPPER ABDOMEN: No free air under the diaphragm. IMPRESSION: No acute thoracic abnormality. Signed by: Dr. Brandan Antony MD on 04/24/2020 12:28 AM
[2020-04-24 00:42] LABS: ALANINE AMINOTRANSFERASE 11 IU/L (0-55); ALBUMIN 4.2 g/dL (3.5-5.0); ALKALINE PHOSPHATASE 70 IU/L (40-150); ANION GAP 19.3 mmol/L (8-16); BLOOD UREA NITROGEN 18 mg/dL (7-26); BUN/CREATININE RATIO 24 (6-25); CALCIUM 9.9 mg/dL (8.4-10.2); CARBON DIOXIDE 23 mmol/L (22-29); CHLORIDE 103 mmol/L (98-107); CREATINE KINASE 60 IU/L (29-168); CREATININE, SERUM 0.74 mg/dL (0.57-1.11); EST GLOMERULAR FILTRATION RATE > 60 ML/MIN (60-); GLUCOSE 94 mg/dL (74-118); POTASSIUM 3.3 mmol/L (3.5-5.1); SODIUM 142 mmol/L (136-145)
[2020-04-24 01:09] LABS: CLARITY,URINE CLOUDY (CLEAR); COLOR,URINE YELLOW (YELLOW); KETONES,URINE 2+ (NEGATIVE); LEUKOCYTE ESTERASE ,URINE NEGATIVE (NEGATIVE); NITRITE,URINE POSITIVE (NEGATIVE); PROTEIN,URINE DIPSTICK 2+ (NEGATIVE); URINE UROBILINOGEN 1 mg/dL (0.2 - 1)
[2020-04-24 01:10] LABS: AMPHETAMINES SCREEN,URINE NEGATIVE (NEGATIVE); BENZODIAZEPINES SCREEN,URINE NEGATIVE (NEGATIVE); BILIRUBIN,URINE MODERATE (NEGATIVE); PHENCYCLIDINE SCREEN,URINE NEGATIVE (NEGATIVE); PREGNANCY TEST, URINE NEGATIVE (NEGATIVE)
[2020-04-24 01:19] LABS: BACTERIA,URINE MANY /HPF; EPITHELIAL CELLS,URINE FEW /LPF; MUCUS,URINE MANY (RARE)
--- NOTE | 2020-04-24 01:41 | Diagnostic Imaging Report ---
Examination: CT head without contrast Clinical Indication: Syncope. Technique: Transaxial noncontrast images from the skull base through the vertex were obtained. Sagittal and coronal reformatted images were done. Dose modulation, iterative reconstruction, and/or weight based adjustment of the mA/kV was utilized to reduce the radiation dose to as low as reasonably achievable. Comparison: None. Findings: Scalp: No abnormalities. Bones: Intact. No fractures. No blastic or lytic lesions. Brain sulci: Appropriate for patient's age. Ventricles: Normal in size and configuration. No hydrocephalus. Extra-axial space: No abnormalities. Parenchyma: A 1cm dilated perivascular space at the inferior margin of the right putamen. No masses, hemorrhage, or acute or chronic cortical based vascular insults. Suprasellar region: No abnormalities. Craniocervical junction: The foramen magnum is patent. No Chiari one malformation. Impression: No intracranial abnormality. Signed by: Dr. Sharyn Ramirez M.D. on 04/24/2020 1:37 AM
--- OUTSIDE RECORDS SUMMARY | 2020-04-24 02:44 | XMS REPORT | Continuity of Care Document ---
Author Author [facility] Address Unknown Phone Unavailable Care Team Providers Care Registered Nurse Post Partum Name Role Phone [employer] Information Exchange Unavailable Un available Problems Problem Status Onset Date Classification Date Reported Comments Source Discharge Diagnosis: Neck pain on left side 07/24/2014 07/27/2014 [facility] NECK PAIN Active 07/24/2014 [facility] Discharge Diagnosis: Nausea & vomiting 07/23/2014 07/26/2014 [facility] Discharge Diagnosis: Abdominal pain 07/23/2014 07/26/2014 [facility] ABDOMINAL/NECK PAIN Active 07/23/2014 [facility] Anxiety (finding) Resolved Problem 06/30/2015 YUDI Emmanuel [facility] Chronic back pain (disorder) R esolved Problem SAMANTHA [facility] Bipolar (qualifier value) Reso lved Problem SAMANTHA Kaiser, [facility] Migraine (disorder) Resolved Problem 06/30/2015 SAMANTHA [facility] Medications Medication Details Route Status Patient Instructions Ordering Provider Order Date Source GI cocktail 30 mL, Route: PO, Dosing Weight 100, kg, ONCE, STAT, Start date: 07/24/14 10:42:00, Stop date: 07/24/14 10:42:00 Inactive 07/24/2014 [facility] Ibuprofen 600 mg, Route: PO, D rug form: TAB, ONCE, Dosing Weight 100, kg, Priority: STAT, Start date: 07/24/14 10:22:00, Stop date: 07/24/14 10:22:00 Inactive 07/24/2014 [facility] Dilaudid 1 mg, Route: IVP, ONC E, Dosing Weight 100, kg, Priority: STAT, Start date: 07/23/14 16:09:00, Stop date: 07/23/14 16:09:00 Inactive 07/23/2014 [facility] Ondansetron 4 MG Oral Tablet [Zofran] 4 mg = 1 tab, PO, BID, Nausea, # 10 tab, 0 Refill(s) Active 07/23/2014 [facility] Acetaminophen 325 MG / Hydrocodone Belle trate 7.5 MG Oral Tablet [[place] 7.5/325] 1 tab, PO, Q4H, for pain, # 10 tab, 0 Re fill(s) Active 07/23/2014 [facility] Zofran 4 mg, Route: IVP, Drug form: INJ, ONCE, Dosing Weight 100, kg, Priority: STAT, Start date: 07/23/14 12:44:00, Stop date: 07/23/14 12:44:00 Inactive 07/23/2014 [facility] Dilaudid 1 mg, Route: IVP, ONC E, Dosing Weight 100, kg, Priority: STAT, Start date: 07/23/14 12:43:00, Stop date: 07/23/14 12:43:00 Inactive 07/23/2014 [facility] Ondansetron 4 mg, Route: IVP, ONCE, Dosing Weight 100, kg, Priority: STAT, Start date: 07/23/14 10:08:00, Stop date: 07/23/14 10:08:00 Inactive 07/23/2014 [facility] Hydromorphone 1 mg, Route: IVP , ONCE, Dosing Weight 100, kg, Priority: STAT, Start date: 07/23/14 10:08:00, Stop date: 07/23/14 10:08:00 Inactive 07/23/2014 [facility] Sodium Chloride 0.154 MEQ/ML Injectable Solution 1,000 mL, Infuse Over: 1 hr, Route: IV, ONCE, Priority: STAT, Dosing Weight 100 kg, Start date: 07/23/14 10:08:00, Duration: 1 doses or times, Stop date: 07/23/14 10:08:00 Inactive 07/23/2014 [facility] Saline Flush 0.9% Notes: (Same as: BD Posiflush) No Longer Active 07/23/2014 [facility] Allergies, Adverse Reactions, Alerts No Known Medication Allergies Immunizations No Data Provided for This Section Results Order Name Results Value Reference Range Date Interpretation Comments Source CHEM PANEL A/G Ratio 0.8 0.7 - 1.6 07/23/2014 [facility] CHEM PANEL Globulin 3.9 2.0 - 4.0 07/23/2014 [facility] CHEM PANEL B/C Ratio 23 6 - 25 07/23/2014 [facility] CHEM PANEL AGAP 12.1 10.0 - 20.0 07/23/2014 [facility] CHEM PANEL eGFR 115 07/23/2014 <sup>1</sup>Result Comment: [...] should be multiplied by the estimated BMI. [facility] CHEM PANEL Glucose Lvl 97 70 - 99 07/23/2014 <sup>2</sup>Interpretive Data: Adult ref erence range values reflect the clinical guidelines
of the [employer] [employer]. [facility] CHEM PANEL CO2 26 24 - 32 07/23/2014 [facility] CHEM PANEL Albumin Lvl 3.2 3.5 - 5.0 07/23/2014 [facility] CHEM PANEL Calcium Lvl 8.4 8.5 - 10.5 07/23/2014 [facility] CHEM PANEL Chloride Lvl 104 95 - 109 07/23/2014 [facility] CHEM PANEL Sodium Lvl 138 135 - 145 07/23/2014 [facility] CHEM PANEL Creatinine Lvl 0.7 0.5 - 1.4 07/23/2014 [facility] CHEM PANEL BUN 16 7 - 22 07/23/2014 [facility] CHEM PANEL Potassium Lvl 4.1 3.5 - 5.1 07/23/2014 [facility] CHEM PANEL Bili Total 0.3 0.2 - 1.3 07/23/2014 [facility] CHEM PANEL Alk Phos 61 39 - 136 07/23/2014 [facility] CHEM PANEL AST 10 0 - 37 07/23/2014 [facility] CHEM PANEL ALT 17 0 - 65 07/23/2014 [facility] CHEM PANEL Total Protein 7.1 6.4 - 8.4 07/23/2014 [facility] CHEM PANEL Lipase Lvl 84 73 - 393 07/23/2014 [facility] CHEM PANEL Amylase Lvl 51 25 - 115 07/23/2014 [facility] INR 0.95 0.85 - 1.17 07/23/2014 <sup>3</sup>Interpretive Data: RECOMMEND ED RANGES FOR PROTIME INR:
2.0- 3.0 for most medical and surgical thromboembolic states.
2.5-3.5 for artificial heart valves and recurrent embolism.

INR SHOULD BE USED ONLY FOR PATIENTS ON STABLE ANTICOAGULANT THERAPY. [facility] PTT 26.5 22.9 - 35.8 07/23/2014 <sup>4</sup>Interpretive Data: Heparin T herapeutic Range: 57 - 92 [facility] PT 12.7 12.0 - 14.7 07/23/[address] [facility] MCH 29.2 27.0 - 31.0 07/23/[address] [facility] Platelet 172 133 - 450 07/23/[address] [facility] MPV 9.5 7.4 - 10.4 07/23/[address] [facility] MCHC 32.6 32.0 - 36.0 07/23/[address] [facility] RDW 15.4 11.5 - 14.5 07/23/[address] [facility] MCV 89.4 80.0 - 98.0 07/23/[address] [facility] Hgb 12.9 12.0 - 16.0 07/23/[address] [facility] Hct 39.5 36.0 - 48.0 07/23/[address] [facility] WBC 6.9 3.7 - 10.4 07/23/[address] [facility] RBC 4.42 4.20 - 5.40 07/23/[address] [facility] Monocytes # 0.4 0.0 - 0.8 07/23/[address] [facility] Basophils # 0.1 0.0 - 0.2 07/23/[address] [facility] Eosinophils # 0.2 0.0 - 0.5 07/23/[address] [facility] Lymphocytes # 2.4 1.0 - 5.5 07/23/[address] [facility] Segs-Bands # 3.8 1.5 - 8.1 07/23/2014 [facility] HEMATOLOGY Segs 55.5 45.0 - 75.0 07/23/2014 [facility] HEMATOLOGY Basophils 1.0 0.0 - 1.0 07/23/2014 [facility] HEMATOLOGY Eosinophils 2.8 0.0 - 4.0 07/23/2014 [facility] HEMATOLOGY Monocytes 6.4 2.0 - 12.0 07/23/2014 [facility] HEMATOLOGY Lymphocytes 34.3 20.0 - 40.0 07/23/2014 [facility] URINE AND STOOL UA Color Ltyellow 07/23/2014 [facility] URINE AND STOOL UA Urobilinogen <=1.0 mg/dL 0.1 - 1.0 07/23/2014 [facility] URINE AND STOOL UA Mucus Few /LPF None Seen /LPF 07/23/2014 [facility] URINE AND STOOL UA Nitrite Negative (07/23/14 10:05 AM) Negative 07/23/2014 [facility] URINE AND STOOL UA Blood Negative (07/23/14 10:05 AM) Negative 07/23/2014 [facility] URINE AND STOOL UA Leuk Est Negative (07/23/14 10:05 AM) Negative 07/23/2014 [facility] URINE AND STOOL UA Spec Grav 1.020 <=1.030 07/23/2014 [facility] URINE AND STOOL UA pH 7.0 5.0 - 8.0 07/23/2014 [facility] URINE AND STOOL UA Turbidity Slight *ABN* (07/23/14 10:05 AM) Clear 07/23/2014 [facility] URINE AND STOOL UA Protein Negative mg/dL Negative mg/dL 07/23/2014 [facility] URINE AND STOOL UA Glucose Negative mg/dL Negative mg/dL 07/23/2014 [facility] URINE AND STOOL UA Ketones Negative mg/dL Negative mg/dL 07/23/2014 [facility] URINE AND STOOL UA Bili Negative *NA* (07/23/14 10:05 AM) Negative 07/23/2014 [facility] URINE AND STOOL UA Bacteria Occasional /HPF None Seen /HPF 07/23/2014 [facility] URINE AND STOOL UA RBC 2 0 - 2 07/23/2014 [facility] URINE AND STOOL UA Sq Epi Few /LPF Few /LPF 07/23/2014 [facility] URINE AND STOOL UA WBC <1 0 - 5 07/23/2014 [facility] URINE CHEM U Preg Negat tina (07/23/14 10:05 AM) Negative 07/23/2014 [facility] Pathology Reports No Data Provided for This [...] Comments Source Systolic (mm Hg) 130 07/24/2014 [facility] Diastolic (mm Hg) 75 07/24/2014 [facility] Respitory Rate 17 07/24/2014 [facility] Heart Rate 49 07/24/2014 [facility] Temperature Oral (F) 98.5 F 07/24/2014 [facility] Weight 100 07/24/2014 [facility] BMI Calculated 44.53 07/24/2014 [facility] Height 149.86 cm 07/24/2014 [facility] Systolic (mm Hg) 177 07/24/2014 [facility] Temperature Oral (F) 98.2 F 07/24/2014 [facility] Diastolic (mm Hg) 100 07/24/2014 [facility] Respitory Rate 18 07/24/2014 [facility] Heart Rate 70 07/24/2014 [facility] Heart Rate 49 07/23/2014 [facility] Respitory Rate 16 07/23/2014 [facility] Diastolic (mm Hg) 72 07/23/2014 [facility] Systolic (mm Hg) 132 07/23/2014 [facility] Diastolic (mm Hg) 64 07/23/2014 [facility] Systolic (mm Hg) 127 07/23/2014 [facility] Respitory Rate 17 07/23/2014 [facility] Heart Rate 46 07/23/2014 [facility] Diastolic (mm Hg) 96 07/23/2014 [facility] Heart Rate 43 07/23/2014 [facility] Respitory Rate 16 07/23/2014 [facility] Systolic (mm Hg) 142 07/23/2014 [facility] Height 149.86 cm 07/23/2014 [facility] Weight 100 07/23/2014 [facility] BMI Calculated 44.53 07/23/2014 [facility] Temperature Oral (F) 98.1 F 07/23/2014 [facility] Encounters Location Location Details Encounter Type Encounter Number Reason For Visit Attending Provider ADM Date DC Date Status Source [facility] [id number] Sunita Christianson 07/23/2014 07/23/2014 [facility] [id number] Rohan Gordon 07/24/2014 07/24/2014 [facility] [place] [facility] [id number] Yaw Alexis-Che 04/19/2015 04/20/2015 [facility] [place] [facility] [id number] Yaw Alexis-Che 06/14/2015 06/15/2015 [facility] [place] [facility] [place] [facility] [id number] Yaw Alexis-Che 06/27/2015 06/28/2015 [facility] [place] Procedures Procedure Code Date Perfomer Comments Source Adenoidectomy 199331101 [facility] [place] section [id number] [facility] [place] Eustachian tuboplasty [id number] [facility] [place] Gastric operation [id number] [facility] [place] Tonsillectomy [id number] [facility] [place] Tubal ligation [id number] [facility] [place] Assessment and Plan No Data Provided for [...] No, Reg Smoking Cessation Counseling No 03/06/2014 [facility] Social History TypeResponse Alcohol Never, Previous treatment: [...]
--- OUTSIDE RECORDS SUMMARY | 2020-04-24 02:44 | XMS REPORT | Continuity of Care Document ---
Author Author [facility] t Organization [facility] Address [address] [place] [address] Phone Unavailable Care Team Providers Care Dam Worker Name Role Phone ARSEN JERAD Attphys Unavailable Levi Lynch Attphys Conrad Gordon Attphys Evie Christianson Attphys [phone] Payers Payer Name Policy Type Policy Number Effective Date Expiration Date S ource Problems Condition Name Condition Details Condition Category Status Onset Date Resolution Date Last Treatment Date Treating Clinician Comments Source NECK PAIN NECK PAIN Active 07/24/2014 [facility] Active 2014-07-24 00:00:00 2014-08-21 10:08:00 Mina Steiner ABDOMINAL/NECK PAIN ABDO SHAYNE/NECK PAIN Active 07/23/2014 [facility] Diagnosis Active 2014-07-23 00:00:00 2014-08-22 13:35:00 Mina Steiner Anxiety (finding) Anxi ety (finding) Resolved Problem 06/30[facility]2015 [facility]olved 2015-06-30 00:54:58 Mina Steiner Chronic back pain (disorder) C hronic back pain (disorder) Resolved Problem 06/30/2015 [facility] Resolved 2015-06-30 00:54:58 Jorge Alberto Steiner Bipolar (qualifier value) Bipo lar (qualifier value) Resolved Problem 06/30/2015 [facility] Resolved 2015-06-30 00:54:58 Mina Steiner Migraine (disorder) Migr tai (disorder) Resolved Problem 06/30/2015 [facility]ANTH[facility] Problem Resolved 2015-06-30 00:54:58 [facility] Discharge Diagnosis: Neck pain on left side Discharge Diagnosis: Neck pain on left side 07/24/2014 07/27/2014 [facility] Problem 2014-07-24 05:00:00 2014-07-27 02:48:09 2014-07-27 02:48:09 [facility] Discharge Diagnosis: Nausea & vomiting Discharge Diagnosis: Nausea & vomiting 07/23/2014 07/26/2014 [facility] Problem 2014-07-23 05:00:00 2014-07-26 00:10:18 2014-07-26 00:10:18 [facility] Discharge Diagnosis: Abdominal pain Discharge Diagnosis: Abdominal pain 07/23/2014 07/26/2014 [facility] Problem 2014-07-23 05:00:00 2014-07-26 00:10:18 2014-07-26 00:10:18 [facility] Allergies, Adverse Reactions, Alerts Allergy Name Allergy Type Status Severity Reaction(s) Onset Date Inacti ve Date Treating Clinician Comments Source No Known Allergies DA Active U 2017-12-10 00:00:00 [facility] Social History Social Habit Start Date Stop Date Quantity Comments Source Social History 2014-03-06 18:36:25 2014-03-06 18:36:25 [facility] Medications Ordered Medication Name Filled Medication Name Start Date Stop Da te Current Medication? Ordering Clinician Indication Dosage Frequency Signature (SIG) Comments Components Source GI cocktail 2014-07-24 15:42:00 No 30 mL, Route: PO, Dosing Weight 100, kg, ONCE, STAT, Start date: 07/24/14 10:42:00, Stop date: 07/24/14 10:42:00 [facility] Ibuprofen 2014-07-24 15:22:00 No 600 mg, Route: PO, Drug form: TAB, ONCE, Dosing Weight 100, kg, Priority: STAT, Start date: 07/24/14 10:22:00, Stop date: 07/24/14 10:22:00 [facility] Dilaudid 2014-07-23 21:09:00 No 1 mg, Route: IVP, ONCE, Dosing Weight 100, kg, Priority: STAT, Start date: 07/23/14 16:09:00, Stop date: 07/23/14 16:09:00 [facility] Ondansetron 4 MG Oral Tablet [Zofran] 2014-07-23 20:54:00 Y es 4 mg = 1 tab, PO, BID, Nausea, # 10 tab, 0 Refill(s) [facility] Acetaminophen 325 MG / Hydrocodone Belle trate 7.5 MG Oral Tablet [[place] 7.5/325] 2014-07-23 20:53:00 Yes 1 tab, PO, Q4H, for pain, # 10 tab, 0 Refill(s) [facility] Zofran 2014-07-23 17:44:00 No 4 mg, Route: IVP, Drug form: INJ, ONCE, Dosing Weight 100, kg, Priority: STAT, Start date: 07/23/14 12:44:00, Stop date: 07/23/14 12:44:00 [facility] Dilaudid 2014-07-23 17:43:00 No 1 mg, Route: IVP, ONCE, Dosing Weight 100, kg, Priority: STAT, Start date: 07/23/14 12:43:00, Stop date: 07/23/14 12:43:00 [facility] Ondansetron 2014-07-23 15:08:00 No 4 mg, Route: IVP, ONCE, Dosing Weight 100, kg, Priority: STAT, Start date: 07/23/14 10:08:00, Stop date: 07/23/14 10:08:00 [facility] Hydromorphone 2014-07-23 15:08:00 No 1 mg, Route: IVP, ONCE, Dosing Weight 100, kg, Priority: STAT, Start date: 07/23/14 10:08:00, Stop date: 07/23/14 10:08:00 [facility] Sodium Chloride 0.154 MEQ/ML Injectable Solution 2014-07-23 15:0 8:00 No 1,000 mL, Infuse Over: 1 hr, Route: IV, ONCE, Priority: STAT, Dosing Weight 100 kg, Start date: 07/23/14 10:08:00, Duration: 1 doses or times, Stop date: 07/23/14 10:08:00 [facility] Saline Flush 0.9% 2014-07-23 15:08:00 No Notes: (Same as: BD Posiflush) [facility] Vital Signs Vital Name Observation Time Observation Value Comments Source Systolic (mm Hg) 2014-07-24 16:34:00 [facility] Diastolic (mm Hg) 2014-07-24 16:34:00 [facility] Respitory Rate 2014-07-24 16:34:00 [facility] Heart Rate 2014-07-24 16:34:00 [facility] Temperature Oral (F) 2014-07-24 16:34:00 98.5 F [facility] Weight 2014-07-24 14:30:00 [facility] BMI Calculated 2014-07-24 14:30:00 [facility] Height 2014-07-24 14:30:00 149.86 cm [facility] Systolic (mm Hg) 2014-07-24 14:30:00 [facility] Temperature Oral (F) 2014-07-24 14:30:00 98.2 F [facility] Diastolic (mm Hg) 2014-07-24 14:30:00 [facility] Respitory Rate 2014-07-24 14:30:00 [facility] Heart Rate 2014-07-24 14:30:00 [facility] Heart Rate 2014-07-23 17:50:00 [facility] Respitory Rate 2014-07-23 17:50:00 [facility] Diastolic (mm Hg) 2014-07-23 17:50:00 [facility] Systolic (mm Hg) 2014-07-23 17:50:00 [facility] Diastolic (mm Hg) 2014-07-23 16:59:00 [facility] Systolic (mm Hg) 2014-07-23 16:59:00 [facility] Respitory Rate 2014-07-23 16:59:00 [facility] Heart Rate 2014-07-23 16:59:00 [facility] Diastolic (mm Hg) 2014-07-23 15:56:00 [facility] Heart Rate 2014-07-23 15:56:00 [facility] Respitory Rate 2014-07-23 15:56:00 [facility] Systolic (mm Hg) 2014-07-23 15:56:00 [facility] Height 2014-07-23 14:49:00 149.86 cm [facility] Weight 2014-07-23 14:49:00 [facility] BMI Calculated 2014-07-23 14:49:00 [facility] Temperature Oral (F) 2014-07-23 14:49:00 98.1 F [facility] Procedures Procedure Date / Time Performed Performing Clinician Ella e Adenoidectomy [facility] section [facility] n Eustachian tuboplasty [facility] G[facility] nn Tonsillectomy [facility] Tubal ligation [facility] Encounters Start Date/Time End Date/Time Encounter Type Admission Type [facility] Care Department Encounter ID Source 2015-06-27 08:20:00 2015-06-27 23:59:00 Outpatient Levi Saunders [facility] [id number] 2015-06-14 12:02:00 2015-06-14 23:59:00 Outpatient Levi Saunders [facility] [id number] 2015-04-19 14:14:00 2015-04-19 23:59:00 Outpatient Levi Saunders [facility] [id number] 2014-07-24 09:28:00 2014-07-24 11:35:00 Outpatient Rohan Gordon [facility] [id number] 2014-07-23 09:46:00 2014-07-23 17:01:00 Outpatient uSnita Townsend [facility] [id number] Results Test Description Test Time Test Comments Results Result Comments Source CT BRAIN WO 2020-04-24 01:33:00 [place] [address] Patient Name: MICHELLE LEONARD MR #: [id number] : 1980 Age/Sex: 39/F Req #: [id number] Adm Physician: Ordered by: JERAD LEGER DO Report #: [id number] Location: ER Room/Bed: Procedure: [id number] CT/CT BRAIN WO Exam Date: 04/24/20 Exam Time: 0105 REPORT STATUS: Signed Examination: CT head without contrast Clinical Indication: Syncope. Technique: Transaxial noncontrast images from the skull base through the vertex were obtained. Sagittal and coronal reformatted images were done. Dose modulation, iterative reconstruction, and/or weight based adjustment of the mA/kV was utilized to reduce the radiation dose to as low as reasonably achievable. Comparison: None. Findings: Scalp: No abnormalities. Bones: Intact. No fractures. No blastic or lytic lesions. Brain sulci: Appropriate for patient's age. Ventricles: Normal in size and configuration. No hydrocephalus. Extra-axial space: No abnormalities. Parenchyma: A 1cm dilated perivascular space at the inferior margin of the right putamen. No masses, hemorrhage, or acute or chronic cortical based vascular insults. Suprasellar region: No abnormalities. Craniocervical junction: The foramen magnum is patent. No Chiari one malformation. Impression: No intracranial abnormality. Signed by: Dr. Bryan Ramirez M.D. on 04/24/2020 1:37 AM Dictated By: BRYAN VALLES MD 6 Transcribed By: ROSINA on 04/24/20136 COPY TO: JERAD LEGER DO CHEST SINGLE (NOT PORTABLE) 2020-04-24 00:27:00 [place] [address] Patient Name: MICHELLE LEONARD MR #: [id number] : 1980 Age/Sex: 39/F Req #: [id number] Adm Physician: Ordered by: JERAD LEGER DO Report #: [id number] Location: ER Room/Bed: Procedure: [id number] DX/CHEST SINGLE (NOT PORTABLE) Exam Date: 04/24/20 Exam Time: 0010 REPORT STATUS: Signed EXAMINATION: CHEST SINGLE (NOT PORTABLE) INDICATION: ERMD ORDER [id number] Y COMPARISON: None FINDINGS: AP view TUBES and LINES: None. LUNGS: Lungs are well inflated. There is no evidence of pneumonia or pulmonary edema. PLEURA: No pleural effusion or pneumothorax. HEART AND MEDIASTINUM: The cardiomediastinal silhouette is unremarkable. BONES AND SOFT TISSUES: No acute osseous lesion. Soft tissues are unremarkable. UPPER ABDOMEN: No free air under the diaphragm. IMPRESSION: No acute thoracic abnormality. Signed by: Dr. Brandan Ramirez MD on 04/24/2020 12:28 AM Dictated By: BRANDAN RAMIREZ MD Transcribed By: ROSINA on 04/24/2027 COPY TO: JERAD LEGER DO CHEM PANEL 2014-07-23 15:05:00 0.8 [facility] CHEM PANEL 2014-07-23 15:05:00 3.9 [facility] CHEM PANEL 2014-07-23 15:05:00 23 [facility] CHEM PANEL 2014-07-23 15:05:00 12.1 [facility] CHEM PANEL 2014-07-23 15:05:00 115 [facility] CHEM PANEL 2014-07-23 15:05:00 97 [facility] CHEM PANEL 2014-07-23 15:05:00 26 [facility] CHEM PANEL 2014-07-23 15:05:00 3.2 [facility] CHEM PANEL 2014-07-23 15:05:00 8.4 [facility] CHEM PANEL 2014-07-23 15:05:00 104 [facility] CHEM PANEL 2014-07-23 15:05:00 138 [facility] CHEM PANEL 2014-07-23 15:05:00 0.7 [facility] CHEM PANEL 2014-07-23 15:05:00 16 [facility] CHEM PANEL 2014-07-23 15:05:00 4.1 [facility] CHEM PANEL 2014-07-23 15:05:00 0.3 [facility] CHEM PANEL 2014-07-23 15:05:00 61 [facility] CHEM PANEL 2014-07-23 15:05:00 10 [facility] CHEM PANEL 2014-07-23 15:05:00 17 [facility] CHEM PANEL 2014-07-23 15:05:00 7.1 [facility] CHEM PANEL 2014-07-23 15:05:00 84 [facility] CHEM PANEL 2014-07-23 15:05:00 51 [facility]ATOLOGY 2014-07-23 15:05[facility] 2014-07-23 15:05:00 Test Item PTT (test code = PTT) 26.5 s 22.9-35.8 [facility] ObdcjqoAIACIJXGJY0025-68-82 15:05:00* Test Item Value Reference Range Interpretation Comments PT (test code = PT) 12.7 s 12.0-14.7 [facility] AtcmsbmETTMUEMHWZ3830-17-40 15:05:00* Test Item Value Reference Range Interpretation Comments MCH (test code = MCH) 29.2 pg 27.0-31.0 [facility] WhlvrxaLSSSPKBEYQ4966-32-35 15:05:92449Ntqtuhol HermannHEMATOLOGY 2014-07-23 15:05:009.5[facility] CothyrzDCCXGWQMEF1914-27-36 15:05:0032.6[facility] MrytlqrNKTUSBXPWV4479-05-36 15:05:0015.4[facility] GjgqpxcXAFXKNQGDR3880-54-04 15:05:0089.4[facility] WgyuykgTHDMUTHQHL4104-41-44 15:05:0012.9[facility] OBSXKAEMDM5396-85-76 15:05:0039.5[facility] IptemjgAEJWYMPBZW1943-32-69 15:05:00 6.9[facility] PgrzhafCVJYSHBZYU7655-69-11 15:05:004.42[facility] HermannHEMATOLOGY 2014-07-23 15:05:000.4[facility] XbgqsteXWAQPZVLON6559-90-22 15:05:000.1[facility] PjwmvfrMKLSLEKVUJ7326-73-07 15:05:000.2[facility] FyokwblUEOGRGNAUN2394-34-18 15:05:002.4[facility] YezywdhSRKNEVVFGW9128-12-91 15:05:003.8[facility] ANBCBXSWPS9871-71-94 15:05:0055.5[facility] ZpguthlZMJBIGFPRJ8484-10-42 15:05:00 1.0[facility] FdhawkvOZIQWCEEVJ7590-78-97 15:05:002.8[facility] HermannHEMATOLOGY 2014-07-23 15:05:006.4[facility] ZgeozrrEGUOIYXIJW6146-96-45 15:05:0034.3[facility] HermannURINE AND YCAKB4204-61-43 15:05:00Negative (07/23/14 10:05 AM)[facility] AND WPCAP7744-20-19 15:05:00Negative (07/23/14 10:05 AM)[facility] AND EQPLD6563-92-89 15:05:00Negative (07/23/14 10:05 AM)[facility] SXBVF4126-88-24 15:05:001.020[facility]ann[facility] AND STOOL 2014-07-23 15:05:007.0[facility] AND EJXOO0210-87-70 15:05:00Slight *ABN*(07/23/14 10:05 AM)[facility] CTZPM7120-66-33 15:05:00Negative *NA*(07/23/14 10:05 AM)[facility] WLCRN8544-96-40 15:05:002[facility] AND OEKOA8940-10-95 15:05:00<1[facility]annURINE AWPB0631-11-46 15:05:00Negative (07/23/14 10:05 AM)[facility]
[2020-04-24] MEDS ORDERED: ASPIRIN 81 MG CHEW TAB PO ONE ×2 (02:45)
--- NOTE | 2020-04-24 03:00 | NUR ---
PT TO BE ADMITTED, PT AWARE OF POC, PT VITAL SIGNS STABLE, PT VOICES NO COMPLAINTS AT THIS TIME
[2020-04-24] MEDS: SODIUM CHLORIDE 0.9% 1000ML 1,000 ML IV SCH ×3 (04:02→18:45)
--- NOTE | 2020-04-24 06:16 | NUR ---
PT RESTING, VITAL SIGNS STABLE, PT VOICES NO COMPLAINTS AT THIS TIME.
[2020-04-24] MEDS: CEFTRIAXONE SOD 1 GM/NS 50 ML 50 ML IV SCH ×2 (06:29→18:45)
--- NOTE | 2020-04-24 06:55 | NUR ---
REPORT TO SUBHASH RODRIGUEZ ALL QUESTIONS ANSWERED
[2020-04-24 08:30] LABS: CREATINE KINASE MB 0.7 ng/mL (0-5.0)
--- NOTE | 2020-04-24 13:36 | NUR ---
PER DR YODER GIVE PT 1 MG ATIVAN PO ONE TIME FOR ANXIETY; ORDER READ BACK AND CONFIRMED
[2020-04-24] MEDS ORDERED: LORAZEPAM 1 MG TAB PO ONE ×2 (13:45→20:15)
--- NOTE | 2020-04-24 18:19 | Consultation ---
DATE OF CONSULTATION: 04/24/2020 Cardiology Consultation REASON FOR CONSULTATION: Lightheadedness and presyncope. HISTORY OF PRESENT ILLNESS: A 39-year-old woman with history of anxiety disorder, morbid obesity with a BMI of 39, presents with complaints of feeling lightheaded and confused after while at a friend's house. She reports no loss of consciousness and ability to continue to walk assisted by a friend, where she walked to the restroom and sat down. She then does not remember further events, but was told according to her friend that she was rolling her eyes back and acting confused. The patient reports history of anxiety disorder and is requesting we converse angiolytic medications. She denies any chest discomfort or shortness of breath. She has reported occasional palpitations. On telemetry, she has sinus bradycardia into the 40s to 50s. REVIEW OF SYSTEMS: A 12-system review negative except for as noted above. ALLERGIES: NO KNOWN DRUG ALLERGIES. PAST MEDICAL HISTORY: As per HPI. FAMILY HISTORY: Noncontributory. SOCIAL HISTORY: Denies drug, alcohol, or smoking. PHYSICAL EXAMINATION: VITAL SIGNS: Temperature 98.8, heart rate 54, blood pressure 110/80, respiratory rate 18, and O2 saturation 98%. BMI 39. GENERAL: In no acute distress. Alert. NECK: No JVD. CHEST: Clear to auscultation. CARDIOVASCULAR: Regular rate and rhythm. Normal S1 and S2. No S3. No S4. Upon sitting upright, the patient's heart rate goes up to 60s on telemetry. No murmurs. No rubs. ABDOMEN: Soft. Bowel sounds positive. EXTREMITIES: No edema. Warm extremities. CARDIOVASCULAR MEDICATIONS: Reviewed. Receiving normal saline at 125 mL/h. STUDIES: Reviewed. Sodium 142, potassium 3.3, chloride 103, bicarbonate 23, BUN 18, creatinine 0.74, and glucose 94. White blood cells 12.4, hemoglobin 11.9, and platelets 244. AST 12, ALT 11, and alkaline phosphatase 70. ASSESSMENT AND PLAN: A 39-year-old woman presents with sinus bradycardia and lightheaded spells in the setting of history of anxiety disorder and morbid obesity. RECOMMEND: 1. Keep on telemetry observation for 24 hours. Check TSH 2. Hydration. 3. Obtain echocardiogram. 4. Further recommendations to follow. MD ROGERIO Shen/RUCHIL /[id number] MTDD
[2020-04-24 20:18] LABS: CREATINE KINASE MB 0.6 ng/mL (0-5.0)
[2020-04-24 20:37] VITALS: BP 165/58
[2020-04-24 21:28] VITALS: BP 165/58
[2020-04-24] MEDS ORDERED: PROZAC40 MG PO (21:54)
[2020-04-24 23:42] VITALS: BP 165/58
[2020-04-25] VITALS (7 sets, daily range): BP systolic 116–152; BP diastolic 57–93
[2020-04-25] MEDS: SODIUM CHLORIDE 0.9% 1000ML 1,000 ML IV SCH ×2 (03:39→12:25)
[2020-04-25] MEDS: CEFTRIAXONE SOD 1 GM/NS 50 ML 50 ML IV SCH ×2 (05:27→16:41)
[2020-04-25 05:51] LABS: BASOPHILS # (AUTO) 0.1 (0.0-0.1); EOSINOPHILS # (AUTO) 0.2 (0.0-0.4); EOSINOPHILS % 2.6 % (0.0-6.0); HEMATOCRIT 32.4 % (34.2-44.1); HEMOGLOBIN 9.9 g/dL (12.0-16.0); LYMPHOCYTES # (AUTO) 1.3 (1.0-3.2); LYMPHOCYTES % 21.9 % (18.0-39.1); MEAN CORPUSCULAR HEMOGLOBIN 25.4 pg (28-32); MEAN CORPUSCULAR HGB CONC 30.6 g/dL (31-35); MEAN CORPUSCULAR VOLUME 83.3 fL (81-99); MONOCYTES # (AUTO) 0.6 (0.2-0.8); MONOCYTES % 9.8 % (4.4-11.3); NEUTROPHILS # (AUTO) 3.7 (2.1-6.9); NEUTROPHILS % 64.5 % (38.7-80.0); PLATELET COUNT 145 x10e3/uL (140-360); RED BLOOD COUNT 3.89 x10e6/uL (3.6-5.1); RED CELL DISTRIBUTION WIDTH 18.6 % (11.7-14.4)
[2020-04-25 06:35] LABS: ALANINE AMINOTRANSFERASE 7 IU/L (0-55); ALKALINE PHOSPHATASE 52 IU/L (40-150); ANION GAP 13.4 mmol/L (8-16); BLOOD UREA NITROGEN 13 mg/dL (7-26); BUN/CREATININE RATIO 20 (6-25); CALCIUM 7.9 mg/dL (8.4-10.2); CARBON DIOXIDE 21 mmol/L (22-29); CHLORIDE 111 mmol/L (98-107); CREATININE, SERUM 0.65 mg/dL (0.57-1.11); EST GLOMERULAR FILTRATION RATE > 60 ML/MIN (60-); GLUCOSE 92 mg/dL (74-118); POTASSIUM 3.4 mmol/L (3.5-5.1); SODIUM 142 mmol/L (136-145)
[2020-04-25 06:57] LABS: CHOL/HDL RATIO 3.8 (3.0-3.6)
--- NOTE | 2020-04-25 10:44 | NUR ---
WOUND CARE CONSULT FOR 39 YO FEMALE HX OF bradycardia /syncopal episodes CLAIRE 22 ON CONSERVATIVE PUP STATUS AND INTERVENTIONS AND VISCO MATTRESS LABS: WBC-5.22 HGB_9.9 GLUCOSE-92 WREM7C-1.9 SKIN ASSESSMENT COMPLETE PATIENT PRESENTS WITH CLOSED ABCESS AREAS TO BACK AND BUTTOCKS REPORTED BY PATIENT STATES SHE PREFERS NOT TO SHOW AREAS HOWEVER AGREE TO ALLOW ASSESSMENT OF ABDOMINAL ABSCESS MEASURES 1CM X1CM X.1CM RECOMMENDATIONS: NURSING TO CONTINUE TO MAINTAIN CONSERVATIVE PUP STATUS AND INTERVENTIONS AND VISCO MATTRESS NURSING TO CONTINUE TO ASSIST PATIENT OUT OF BED FOR MEALS AND MUCH TOLERATED NURSING TO CONTINUE TO ASSIST PATIENT NEEDED WITH MEALS AND NUTRITIONAL SUPPLEMENTS TO ENSURE PROPER REQUIREMENTS FOR HEALING NURSING TO CONTINUE TO OFFLOAD FEET AND HEELS NEEDED WITH PILLOW SUSPENSION WHEN IN BED NURSING TO CLEAN ABDOMINAL PARTIAL THICKNESS OPENING WITH NORMAL SALINE DAILY AND APPLY BACITRACIN OINTMENT AND ALLEVYN FOAM DRESSING Addendum: 04/25/20 at 1051 by Marcelo Mclain RN Amended: Links added.
[2020-04-25] MEDS ORDERED: LORAZEPAM 0.5 MG TAB PO PRN ×2 (15:00→20:15)
[2020-04-25] MEDS ORDERED: LORAZEPAM 0.5 MG TAB PO ONE ×2 (15:30→22:15)
--- NOTE | 2020-04-25 19:30 | NUR ---
walking rounds complete, pt stable at shift change. report given to oncoming nurse.
[2020-04-25] MEDS: ZOLPIDEM TARTRATE 10 MG TAB PO PRN (20:42)
[2020-04-26] VITALS (8 sets, daily range): BP systolic 136–170; BP diastolic 71–102
--- NOTE | 2020-04-26 01:30 | Progress Note ---
DATE: 04/25/2020 Cardiology Progress Note SUBJECTIVE: Episodes of recurrent lightheadedness in the setting of heart rate dropping to the 30s on telemetry seem to correlate in time. OBJECTIVE: VITAL SIGNS: Temperature 97.8, heart rate 61, blood pressure 116/68, respiratory rate 16, and O2 saturation 100%. BMI 49. GENERAL: In no acute distress. Alert. NECK: No JVD. CHEST: Clear to auscultation. CARDIOVASCULAR: Regular rate and rhythm. Episodes of bradycardia. ABDOMEN: Soft. Bowel sounds positive. EXTREMITIES: Trace edema. CARDIOVASCULAR MEDICATIONS: Reviewed. LABORATORY DATA: Creatinine 0.6. Hemoglobin 9.9, platelets 145. ASSESSMENT AND PLAN: A 39-year-old woman with symptomatic bradycardia without any observed reversible causes, morbid obesity, anxiety, as well as anemia. RECOMMEND: 1. EP consultation. Keep on telemetry. Hold/avoid chronotropic negative medications. 2. Anemia workup advised. MD ROGERIO Shen/DARBY /[id number]
--- NOTE | 2020-04-26 02:21 | Consultation ---
DATE OF CONSULTATION: 04/25/2020 REASON FOR CONSULT: Dizziness. HISTORY OF PRESENT ILLNESS: This is a 39-year-old woman with history of recurrent syncope. She has been having recurrent episodes of near-syncope with dizziness occurring about every 1 to 2 months, however, has become more frequent and she feels very tired and dizzy every time she tries to exercise. Her heart rate has been in the upper 30s to low 40s at baseline. She has been on telemetry. She was asked to walk, however, after a walk, she felt very dizzy. The heart rate went up to 45 to 50s, but drops right back to the low 40s. The patient states her mother had a pacemaker and she had a syncope episode at home and has been anxious about that. REVIEW OF SYSTEMS: CONSTITUTIONAL: As per HPI. CARDIOVASCULAR: As per HPI. RESPIRATORY: Negative. GASTROINTESTINAL: Negative. GENITOURINARY: Negative. MUSCULOSKELETAL: Negative. EYES: Negative. ENT: Negative. ALLERGY/IMMUNOLOGY: Negative. PSYCHIATRIC: Negative. PAST MEDICAL HISTORY: Negative. SURGICAL HISTORY: Negative. FAMILY HISTORY: No premature coronary artery disease. SOCIAL HISTORY: Denies alcohol or smoking. PHYSICAL EXAMINATION: VITAL SIGNS: Blood pressure 110/60, pulse 40, respirations 20, O2 sats 98%. GENERAL: No acute distress. HEENT: Moist mucous membranes. CARDIOVASCULAR: Regular. RESPIRATORY: Clear. ABDOMEN: Soft, nontender. MUSCULOSKELETAL: 2+ distal pulses. NEUROLOGIC: No focal deficits. SKIN: No lesions. PSYCHIATRIC: Normal thought process. EKG, sinus bradycardia. Telemetry shows baseline heart rate in the 40s and 50s. However, it drops to the 30s when she has episodes of dizziness. IMPRESSION: Bradycardia, symptomatic bradycardia. No reversible causes. Currently associated to dizziness, near syncope and she had one syncope event at home. 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 At this time, she will benefit from a pacemaker. Even though she is young, she is having so many symptoms that she can have a syncope event while driving and have potential risk for . Procedure was explained in detail with benefits and risks. She voices understanding and wishes to proceed. We will plan for a dual-chamber pacemaker placement. Thank you for letting us participate in Ms. Scovel's healthcare. MD NAILA Chen/DARBY /[id number]
[2020-04-26] MEDS: CEFTRIAXONE SOD 1 GM/NS 50 ML 50 ML IV SCH ×2 (06:04→17:35)
--- NOTE | 2020-04-26 07:50 | NUR ---
PATIENT OFF THE UNIT FOR PROCEDURE, STABLE
[2020-04-26] MEDS ORDERED: MIDAZOLAM HCL 2 MG/2 ML VIAL ONE ×5 (08:12→10:10)
[2020-04-26] MEDS ORDERED: FENTANYL CITRATE/PF 100MCG/2 ML INJ ONE ×2 (08:13→10:10)
[2020-04-26] MEDS ORDERED: LIDOCAINE 1% W/EPINEPHRINE 20 ML VIAL ONE ×2 (08:13→09:54)
[2020-04-26] MEDS ORDERED: BACITRACIN 50,000 UNIT VIAL ONE ×2 (08:14→08:16)
[2020-04-26] MEDS ORDERED: SODIUM CHLORIDE 0.9% 500ML 500 ML ONE (08:15)
[2020-04-26] MEDS ORDERED: SODIUM CHLORIDE 0.9% 1000ML 2,000 ML ONE (08:16)
[2020-04-26] MEDS ORDERED: VANCOMYCIN 1GM/NS 250 ML 250 ML ONE ×2 (08:17→08:35)
[2020-04-26] MEDS: BACITRACIN ZINC 15 GM OINT TOP SCH (09:00)
--- NOTE | 2020-04-26 10:42 | Progress Note ---
DATE: 04/26/2020 Cardiology Progress Note SUBJECTIVE: No complaints overnight. Slept well. OBJECTIVE: VITAL SIGNS: Temperature 98.2, heart rate 54, blood pressure 132/92, respiratory rate 17, O2 saturation 97%. BMI 49.8. GENERAL: No acute distress. Alert. NECK: No JVD. CHEST: Clear to auscultation. CARDIOVASCULAR: Regular rate and rhythm. Normal S1 and S2. Bradycardic. No S3. No S4. No murmurs. ABDOMEN: Soft. Bowel sounds positive. EXTREMITIES: Trace edema. CARDIOVASCULAR MEDICATION: Reviewed. LABORATORY DATA: Creatinine 0.6, hemoglobin 9.9, platelets 145. AST 11 and ALT 7. ASSESSMENT AND PLAN: A 39-year-old woman presents with: 1. Symptomatic bradycardia. 2. Anemia. 3. Morbid obesity. 4. Anxiety. RECOMMEND: 1. No reversible cause for symptomatic bradycardia identified. 2. EP consulted, possible pacemaker implant. 3. Continue to monitor on telemetry. Avoid chronotropic negative medications. Navi Ignacio MD [facility]/MODL /[id number]
--- NOTE | 2020-04-26 11:09 | NUR ---
Recvd patient back from [employer], left chest surgical site pressure site is intact with arm sling on, not in any distress, on IV fluids
[2020-04-26] MEDS ORDERED: TRAMADOL HCL 50 MG TAB PO PRN (11:15)
[2020-04-26] MEDS: MORPHINE SULFATE 2 MG/ML SYR 1ML IV PRN ×3 (11:45→20:13)
--- NOTE | 2020-04-26 12:46 | Diagnostic Imaging Report ---
EXAMINATION: CHEST SINGLE (PORTABLE) INDICATION: Postprocedural COMPARISON: Chest radiograph 04/24/2020 FINDINGS: LINES/TUBES:Interval placement of left chest pacer with leads projecting over the right atrium and right ventricle. EKG leads overlie the chest. LUNGS:The lungs are well-inflated. No focal consolidation or pulmonary edema. PLEURA:No pleural effusion or pneumothorax. MEDIASTINUM:The cardiomediastinal silhouette appears normal in size and shape. BONES/SOFT TISSUES:No acute osseous injury. ABDOMEN:No free air under the diaphragm. IMPRESSION: No pneumothorax status post left chest pacemaker placement. Signed by: Amada Robertson MD on 04/26/2020 12:42 PM
[2020-04-26] MEDS: LORAZEPAM 0.5 MG TAB PO PRN (12:57)
[2020-04-26] MEDS: SODIUM CHLORIDE 0.9% 1000ML 1,000 ML IV SCH ×2 (16:00→21:25)
--- NOTE | 2020-04-26 18:28 | NUR ---
PATIENT RESTING IN BED, PAIN 3/10 ON LEFT CHEST, DRESSING INTACT, NO DISTRESS NOTED, TOLERATED DINNER
--- NOTE | 2020-04-26 19:10 | Operative Report ---
DATE OF PROCEDURE: 04/26/2020 SURGEON: Zaki Malone MD PREPROCEDURE DIAGNOSES: 1. Symptomatic bradycardia. 2. Dizziness and syncope. POSTPROCEDURE DIAGNOSES: 1. Symptomatic bradycardia. 2. Dizziness and syncope. ESTIMATED BLOOD LOSS: 10 mL. 1. COMPLICATIONS: None. PROCEDURES PERFORMED: 1. Dual chamber pacemaker placement. 2. Moderate sedation. 3. Moderate conscious sedation was provided under my direct supervision by physician trained nurse. Sedation approximate time 30 minutes, versed and fentanyl. There were no complications. See sedation report for details. DESCRIPTION OF PROCEDURE: After informed consent was obtained, the patient was brought to the electrophysiology laboratory in a fasting, nonsedated state. Area over her chest was prepped and draped in the usual sterile fashion. Moderate sedation and prophylactic antibiotics were given. A 1% lidocaine was used as local anesthetic and a 3 cm skin incision was made in the left subclavicular area. Electrocautery sharp and blunt dissection were used to bridge the muscular fascia and a pocket was created for event implantation of the device. Vascular access was obtained x2 in the left axillary vein using the modified Seldinger technique under fluoroscopy guidance. Two sheaths were placed, ventricular lead to the RV apex. R-wave 6.9, pacing 0.5 at 0.5, impedance 800. Atrial lead to the right atrial appendage, P-wave 4, pacing one at 0.5, impedance 700. Sheaths were removed from the body. Leads were secured to fascia using Ethibond. Pocket was irrigated with antibiotic solution using the pulse microbiology lab manager. Hemostasis was meticulous. Leads connected to the device and entire device is in place in the pocket. We used vancomycin powder in the pocket. Incision was closed using absorbable sutures and Dermabond. The patient tolerated the procedure well. Procedure was incomplete. SUMMARY OF HARDWARE IMPLANTED: The new pacemaker is [employer], serial #[id number]. Atrial lead is [employer] [id number]. Ventricular lead is [employer] [id number]. Of note, we had discussion with the patient about risks for having a scar over the chest where we made the incision that had to be through tattoo that she had. She voices understanding and she is okay with making decision through the tattoo. IMPRESSION: Successful dual-chamber pacemaker implant via left axillary vein. PLAN: 1. Routine postop monitoring, on telemetry bed. 2. Chest x-ray. 3. Follow up in two weeks. MD ANILA Chen/DARBY /[id number]
[2020-04-26] MEDS: ZOLPIDEM TARTRATE 10 MG TAB PO PRN (20:52)
[2020-04-26] MEDS: ONDANSETRON HCL INJ 2MG/ML 2ML 2 MG/ML VIAL IV PRN (20:52)
[2020-04-27] VITALS: BP 166/97
[2020-04-27] MEDS: MORPHINE SULFATE 2 MG/ML SYR 1ML IV PRN ×2 (00:09→07:43)
[2020-04-27] MEDS: LORAZEPAM 0.5 MG TAB PO PRN (02:18)
[2020-04-27] MEDS: SODIUM CHLORIDE 0.9% 1000ML 1,000 ML IV SCH (02:45)
[2020-04-27 04:00] VITALS: BP 152/95
[2020-04-27] MEDS: CEFTRIAXONE SOD 1 GM/NS 50 ML 50 ML IV SCH (05:32)
[2020-04-27] MEDS: ONDANSETRON HCL INJ 2MG/ML 2ML 2 MG/ML VIAL IV PRN (07:43)
[2020-04-27 07:47] VITALS: BP 166/83
[2020-04-27 08:13] VITALS: BP 166/83
[2020-04-27] MEDS ORDERED: POTASSIUM CHLORIDE 10MEQ EA PO NR (09:00)
[2020-04-27] MEDS: BACITRACIN ZINC 15 GM OINT TOP SCH (09:00)
[2020-04-27] MEDS ORDERED: MINOCYCLINE HCL50 MG PO (11:07)
[2020-04-27] MEDS ORDERED: ULTRAM 50MG50 MG PO (11:08)
[2020-04-27 11:47] VITALS: BP 152/97
== END 2020-04-27 12:10 | disposition home or self-care (01) | DRG 243 ==
LOC: ER 22:50 → ERHOLD 04-24 02:33 → MED/SURG 04-24 20:37 → OBSVTOIN 04-26 07:49
PROC: 0JH606Z Insertion of Pacemaker, Dual Chamber into Chest Subcutaneous Tissue and Fascia, Open Approach (ICD-10-PCS; principal; 2020-04-26)
PROC: 02HK3JZ Insertion of Pacemaker Lead into Right Ventricle, Percutaneous Approach (ICD-10-PCS; 2020-04-26)
PROC: 02H63JZ Insertion of Pacemaker Lead into Right Atrium, Percutaneous Approach (ICD-10-PCS; 2020-04-26)
DX: R00.1 Bradycardia, unspecified (principal); Z68.42 Body mass index [BMI] 45.0-49.9, adult; F41.9 Anxiety disorder, unspecified; Z11.59 Encounter for screening for other viral diseases; R55 Syncope and collapse; E66.01 Morbid (severe) obesity due to excess calories; D64.9 Anemia, unspecified
CPT/HCPCS: 33208; 36415; 70450; 71045; 80053; 80061; 80307; 81001; 81025; 82550; 82553; 83036; 83880; 84443; 84484; 85025; 87635; 93005; 93306; 99152; 99153; 99251; 99284; C1785; C1898; G0378; J0696; J2250; J2270; J2405; J3010; J3370; J7030; J7040

== ENCOUNTER 2020-05-30 16:56 | Emergency (ER) | payer OTHER, MEDICARE ==
[~2020-05-30] VITALS: Ht 149.9 cm; Wt 112.0 kg
[~2020-05-30 16:56] MED LIST changes: +MINOCYCLINE HCL50 MG PO; +PROZAC40 MG PO; +ULTRAM 50MG50 MG PO
[2020-05-30] MEDS ORDERED: SODIUM CHLORIDE 0.9% 1000ML 1,000 ML IV STA (17:03)
--- NOTE | 2020-05-30 17:10 | Emergency Department Note ---
History of Present Illnes History of Present Illness Chief Complaint: General Medicine Complaints History of Present Illness This is a 39 year old female brought by EMS for evaluation of dizziness pre-syncope followed by a fall in the kitchen with R hip pain. Historian: School Age Lead Teacher/EMS Arrival Mode: [facility] Treatment HEAD DOFFER: IV, O2, EKG, See EMS Report Onset (how long ago): second(s) Location: R hip pain Severity: moderate Onset quality: sudden Duration (how long): hour(s) Progression: unchanged Chronicity: new Context: Reports trauma/injury Relieving factors: immobilization, rest Exacerbating factors: movement Associated symptoms: Reports denies other symptoms Past Medical/Family History Physician Review I have reviewed the patient's past medical and family history. Any updates have been documented here. Past Medical History Recent Fever: No Clinical Suspicion of Infectio: No New/Unexplained Change in Ment: No Past Medical History: Hypertension, UTI's, Migraines, Anxiety, Depression, Chronic Back Pain Other Medical History: ANXIETY Past Surgical History: , Bariatric Surgery Other Surgery: LAP BAND 2009, 2003,2007 TONSILS REMOVED 1989 Social History Smoking Cessation: Never Smoker Alcohol Use: None Any Illegal Drug Use: No Other Last Tetanus: LESS THAN FIVE YEARS. Review of Systems Review of Systems Constitutional: Reports no symptoms EENTM: Reports no symptoms Cardiovascular: Reports other (pre-syncope); Denies chest pain Respiratory: Reports no symptoms Gastrointestinal: Reports no symptoms Genitourinary: Reports no symptoms Musculoskeletal: Reports joint pain (Right Hip pain) Integumentary: Reports no symptoms Neurological: Reports no symptoms Psychological: Reports no symptoms Endocrine: Reports no symptoms Hematological/Lymphatic: Reports no symptoms Physical Exam Related Data Allergies: Coded Allergies: No Known Allergies (Unverified , 01/04/13) Triage Vital Signs Vital Signs Date Time Temp Pulse Resp B/P (MAP) Pulse Ox O2 Delivery O2 Flow Rate FiO2 05/30/20 16:56 97.6 64 18 137/73 100 Room Air Vital signs reviewed: Yes Physical Exam CONSTITUTIONAL Constitutional: Present morbidly obese HENT HENT: Present normocephalic, Present atraumatic, Present oropharynx clear/moist, Present nose normal HENT L/R: Present left ext ear normal, Present right ext ear normal EYES Eyes: Reports PERRL, Reports conjunctivae normal NECK Neck: Present ROM normal PULMONARY Pulmonary: Present effort normal, Present breath sounds normal CARDIOVASCULAR Cardiovascular: Present regular rhythm, Present heart sounds normal, Present capillary refill normal, Present normal rate GASTROINTESTINAL Abdominal: Present soft, Present nontender, Present bowel sounds normal GENITOURINARY Genitourinary: Present exam deferred SKIN Skin: Present warm, Present dry MUSCULOSKELETAL Musculoskeletal: Present ROM normal NEUROLOGICAL Neurological: Present alert, Present oriented x 3, Present no gross motor or sensory deficits PSYCHOLOGICAL Psychological: Present mood/affect normal, Present judgement normal Results Laboratory Lab results reviewed: Yes Laboratory comments Laboratory Tests Test 05/30/20 17:25 White Blood Count 4.57 x10e3/uL (4.8-10.8) Red Blood Count 4.56 x10e6/uL (3.6-5.1) Hemoglobin 11.5 g/dL (12.0-16.0) Hematocrit 36.9 % (34.2-44.1) Mean Corpuscular Volume 80.9 fL (81-99) Mean Corpuscular Hemoglobin 25.2 pg (28-32) Mean Corpuscular Hemoglobin Concent 31.2 g/dL (31-35) Red Cell Distribution Width 20.3 % (11.7-14.4) Platelet Count 142 x10e3/uL (140-360) Neutrophils (%) (Auto) 63.4 % (38.7-80.0) Lymphocytes (%) (Auto) 26.3 % (18.0-39.1) Monocytes (%) (Auto) 6.6 % (4.4-11.3) Eosinophils (%) (Auto) 2.8 % (0.0-6.0) Basophils (%) (Auto) 0.7 % (0.0-1.0) Neutrophils # (Auto) 2.9 (2.1-6.9) Lymphocytes # (Auto) 1.2 (1.0-3.2) Monocytes # (Auto) 0.3 (0.2-0.8) Eosinophils # (Auto) 0.1 (0.0-0.4) Basophils # (Auto) 0.0 (0.0-0.1) Absolute Immature Granulocyte (auto 0.01 x10e3/uL (0-0.1) Sodium Level 140 mmol/L (136-145) Potassium Level 3.2 mmol/L (3.5-5.1) Chloride Level 104 mmol/L (98-107) Carbon Dioxide Level 26 mmol/L (22-29) Anion Gap 13.2 mmol/L (8-16) Blood Urea Nitrogen 6 mg/dL (7-26) Creatinine 0.71 mg/dL (0.57-1.11) Estimat Glomerular Filtration Rate > 60 ML/MIN (60-) BUN/Creatinine Ratio 8 (6-25) Glucose Level 87 mg/dL (74-118) Calcium Level 8.5 mg/dL (8.4-10.2) Total Bilirubin 0.4 mg/dL (0.2-1.2) Aspartate Amino Transf (AST/SGOT) 106 IU/L (5-34) Alanine Aminotransferase (ALT/SGPT) 82 IU/L (0-55) Alkaline Phosphatase 82 IU/L (40-150) Creatine Kinase 56 IU/L (29-168) Creatine Kinase MB 0.60 ng/mL (0-5.0) Troponin I 0.009 ng/mL (0-0.300) B-Type Natriuretic Peptide 22.4 pg/mL (0-100) Total Protein 6.8 g/dL (6.5-8.1) Albumin 3.0 g/dL (3.5-5.0) Globulin 3.8 g/dL (2.3-3.5) Albumin/Globulin Ratio 0.8 (0.8-2.0) Imaging Imaging results reviewed: Yes Impressions [place] [address] Patient Name: MICHELLE LEONARD MR #: [id number] : 1980 Age/Sex: 39/F Req #: [id number] Adm Physician: Ordered by: JERAD LEGER DO Report #: [id number] Location: ER Room/Bed: Procedure: [id number] CT/CT BRAIN WO Exam Date: 05/30/20 Exam Time: 1730 REPORT STATUS: Signed CT BRAIN WO HISTORY: Fall, dizzy COMPARISON: Head CT 04/24/2020 TECHNIQUE: Noncontrast axial scans were obtained from skull base to the vertex. Coronal and sagittal reconstructions obtained from the axial data. One or more of the following dose reduction techniques were used: Automated exposure control, adjustment of the mA and/or kV according to patient size, and/or utilization of iterative reconstruction technique. DISCUSSION: Scalp/Skull: Unremarkable. Brain sulci: Appropriate for patient's age. Ventricles: Normal in size and configuration. No hydrocephalus. Extra-axial spaces: No masses or fluid collections. Minimal carotid siphon calcifications. Parenchyma: Stable small hypodensity along the right inferior putamen is likely a prominent perivascular space. No mass, hemorrhage, or large vascular territory acute infarct. Dural sinuses: No abnormal densities. Sellar/Suprasellar region: Intact. Skull base: Intact. Incidental findings: Minimal left ethmoid air cell mucosal thickening. IMPRESSION: No acute intracranial abnormalities. Signed by: Dr. Oneil Guo M.D. on 05/30/2020 5:55 PM Dictated By: ONEIL GUO MD 54 Transcribed By: ROSINA on 05/30/201754 COPY TO: JERAD LEGER DO~ [place] [address] Patient Name: MICHELLE LEONARD MR #: [id number] : 1980 Age/Sex: 39/F Req #: [id number] Adm Physician: Ordered by: JERAD LEGER DO Report #: [id number] Location: Room/Bed: Procedure: DX/HIP RIGHT 2-3 VW (+/- PELVIS) Exam Date: Exam Time: REPORT STATUS: Signed HIP RIGHT 2-3 VW (+/- PELVIS) - 3 views HISTORY: Right hip pain. COMPARISON: None available. FINDINGS: Bones/joints: No acute fracture or dislocation. The sacroiliac joints are symmetric. No pubic symphyseal widening. Soft tissues: The soft tissues appear unremarkable. IMPRESSION: No osseous or soft tissue abnormality. Signed by: Saira Bowling MD on 05/30/2020 6:28 PM Dictated By: SAIRA BOWLING MD 27 Transcribed By: ROSINA on 05/30/201827 COPY TO: JERAD LEGER DO~ [place] [address] Patient Name: MICHELLE LEONARD MR #: [id number] : 1980 Age/Sex: 39/F Req #: [id number] [place] Physician: Ordered by: JERAD LEGER DO Report #: [id number] Location: ER Room/Bed: Procedure: DX/CHEST SINGLE (NOT PORTABLE) Exam Date: 05/30/20 Exam Time: 1730 REPORT STATUS: Signed EXAMINATION: CHEST SINGLE (NOT PORTABLE) INDICATION: Status post fall with chest pain. COMPARISON: Chest x-rays on 04/26/2020 FINDINGS: TUBES and LINES: Double lead cardiac pacer in place which terminates in the right atrium and ventricle. LUNGS: The lung volumes are low with bibasilar atelectasis. Lungs are clear. No consolidations. PLEURA: No pleural effusion or pneumothorax. HEART AND MEDIASTINUM: The cardiomediastinal silhouette is unremarkable. BONES AND SOFT TISSUES: No acute osseous lesion. Soft tissues are unremarkable. UPPER ABDOMEN: No free air under the diaphragm. IMPRESSION: No acute thoracic radiographic abnormality. Low lung volumes with bibasilar atelectasis. Signed by: Saira Bowling MD on 05/30/2020 6:09 PM Dictated By: SAIRA BOWLING MD 08 Transcribed By: ROSINA on 05/30/201808 COPY TO: JERAD LEGER DO~ Procedures 12 Lead ECG Interpretation ECG Interpretation : ECG: ECG 1 Surg Tech: Interpreted by ED physician Date: May 30, 2020 Time: 19:38 Prior ECG tracings: reviewed Rhythm: paced Rate: normal BPM: 60 Pacin% capture Clinical Impression: non-specific ECG Assessment & Plan Medical Decision Making MDM 39 yof presents with dizziness and pre-syncope. CMP, CBC, EKG, and cardiac enzymes ordered for consideration of ACS, PE, costocondritis, Chest wall pain, and pneumothorax considered. labs, imaging and EKG reviewed . Patient with additional complaint of R hip pain with diff dx of sprain, strain, and fx Assessment & Plan Final Impression: (1) Dizziness (2) Right hip pain Depart Disposition: HOME, SELF-CARE Last Vital Signs Date Time Temp Pulse Resp B/P (MAP) Pulse Ox O2 Delivery O2 Flow Rate FiO2 05/30/20 16:56 97.6 64 18 137/73 100 Room Air Home Meds Reported Medications Tramadol Hcl* (ULTRAM 50MG*) 50 Mg Tab, 50 MG PO Q6H PRN for MILD PAIN (1-3), TAB 04/27/20 Minocycline Hcl (MINOCYCLINE HCL) 50 Mg Capsule, 100 MG PO BID, #60 TAB 04/27/20 Fluoxetine Hcl (PROZAC) 40 Mg Capsule, 40 MG PO DAILY, #30 TAB 04/24/20 Alprazolam (XANAX) 2 Mg Tablet, PO TID 01/02/13 Medications in the ED Sodium Chloride 1,000 ml @ 0 mls/hr Q0M STAT IV ; Start 05/30/20 at 17:03; Stop 05/30/20 at 17:06; Status JERAD HOFFMAN DO May 30, 2020 17:10
[2020-05-30 17:34] LABS: BASOPHILS % 0.7 % (0.0-1.0); EOSINOPHILS # (AUTO) 0.1 (0.0-0.4); EOSINOPHILS % 2.8 % (0.0-6.0); HEMATOCRIT 36.9 % (34.2-44.1); HEMOGLOBIN 11.5 g/dL (12.0-16.0); LYMPHOCYTES # (AUTO) 1.2 (1.0-3.2); LYMPHOCYTES % 26.3 % (18.0-39.1); MEAN CORPUSCULAR HEMOGLOBIN 25.2 pg (28-32); MEAN CORPUSCULAR HGB CONC 31.2 g/dL (31-35); MEAN CORPUSCULAR VOLUME 80.9 fL (81-99); MONOCYTES # (AUTO) 0.3 (0.2-0.8); MONOCYTES % 6.6 % (4.4-11.3); NEUTROPHILS # (AUTO) 2.9 (2.1-6.9); NEUTROPHILS % 63.4 % (38.7-80.0); PLATELET COUNT 142 x10e3/uL (140-360); RED BLOOD COUNT 4.56 x10e6/uL (3.6-5.1); RED CELL DISTRIBUTION WIDTH 20.3 % (11.7-14.4)
[2020-05-30 17:48] LABS: ALANINE AMINOTRANSFERASE 82 IU/L (0-55); ALBUMIN/GLOBULIN RATIO 0.8 (0.8-2.0); ALKALINE PHOSPHATASE 82 IU/L (40-150); ANION GAP 13.2 mmol/L (8-16); BLOOD UREA NITROGEN 6 mg/dL (7-26); BUN/CREATININE RATIO 8 (6-25); CALCIUM 8.5 mg/dL (8.4-10.2); CARBON DIOXIDE 26 mmol/L (22-29); CHLORIDE 104 mmol/L (98-107); CREATINE KINASE 56 IU/L (29-168); CREATININE, SERUM 0.71 mg/dL (0.57-1.11); EST GLOMERULAR FILTRATION RATE > 60 ML/MIN (60-); GLUCOSE 87 mg/dL (74-118); POTASSIUM 3.2 mmol/L (3.5-5.1); SODIUM 140 mmol/L (136-145)
--- NOTE | 2020-05-30 17:59 | Diagnostic Imaging Report ---
CT BRAIN WO HISTORY: Fall, dizzy COMPARISON: Head CT 04/24/2020 TECHNIQUE: Noncontrast axial scans were obtained from skull base to the vertex. Coronal and sagittal reconstructions obtained from the axial data. One or more of the following dose reduction techniques were used: Automated exposure control, adjustment of the mA and/or kV according to patient size, and/or utilization of iterative reconstruction technique. DISCUSSION: Scalp/Skull: Unremarkable. Brain sulci: Appropriate for patient's age. Ventricles: Normal in size and configuration. No hydrocephalus. Extra-axial spaces: No masses or fluid collections. Minimal carotid siphon calcifications. Parenchyma: Stable small hypodensity along the right inferior putamen is likely a prominent perivascular space. No mass, hemorrhage, or large vascular territory acute infarct. Dural sinuses: No abnormal densities. Sellar/Suprasellar region: Intact. Skull base: Intact. Incidental findings: Minimal left ethmoid air cell mucosal thickening. IMPRESSION: No acute intracranial abnormalities. Signed by: Dr. Oneil Guo M.D. on 05/30/2020 5:55 PM
--- NOTE | 2020-05-30 18:12 | Diagnostic Imaging Report ---
EXAMINATION: CHEST SINGLE (NOT PORTABLE) INDICATION: Status post fall with chest pain. COMPARISON: Chest x-rays on 04/26/2020 FINDINGS: TUBES and LINES: Double lead cardiac pacer in place which terminates in the right atrium and ventricle. LUNGS: The lung volumes are low with bibasilar atelectasis. Lungs are clear. No consolidations. PLEURA: No pleural effusion or pneumothorax. HEART AND MEDIASTINUM: The cardiomediastinal silhouette is unremarkable. BONES AND SOFT TISSUES: No acute osseous lesion. Soft tissues are unremarkable. UPPER ABDOMEN: No free air under the diaphragm. IMPRESSION: No acute thoracic radiographic abnormality. Low lung volumes with bibasilar atelectasis. Signed by: Obey Lakhani MD on 05/30/2020 6:09 PM
--- NOTE | 2020-05-30 18:31 | Diagnostic Imaging Report ---
HIP RIGHT 2-3 VW (+/- PELVIS) - 3 views HISTORY: Right hip pain. COMPARISON: None available. FINDINGS: Bones/joints: No acute fracture or dislocation. The sacroiliac joints are symmetric. No pubic symphyseal widening. Soft tissues: The soft tissues appear unremarkable. IMPRESSION: No osseous or soft tissue abnormality. Signed by: Obey Lakhani MD on 05/30/2020 6:28 PM
[2020-05-30 20:05] LABS: CLARITY,URINE SL CLOUDY (CLEAR); COLOR,URINE AMBER (YELLOW); LEUKOCYTE ESTERASE ,URINE NEGATIVE (NEGATIVE); NITRITE,URINE NEGATIVE (NEGATIVE)
[2020-05-30 20:06] LABS: AMPHETAMINES SCREEN,URINE NEGATIVE (NEGATIVE); BENZODIAZEPINES SCREEN,URINE POSITIVE (NEGATIVE); BILIRUBIN,URINE SMALL (NEGATIVE); KETONES,URINE 2+ (NEGATIVE); PHENCYCLIDINE SCREEN,URINE NEGATIVE (NEGATIVE); PREGNANCY TEST, URINE NEGATIVE (NEGATIVE); PROTEIN,URINE DIPSTICK TRACE (NEGATIVE); URINE UROBILINOGEN 2 mg/dL (0.2 - 1)
[2020-05-30 20:12] LABS: AMORPHOUS SEDIMENT,URINE MODERATE (FEW); BACTERIA,URINE MANY /HPF; EPITHELIAL CELLS,URINE MODERATE /LPF; TRANSITIONAL EPI CELLS,URINE FEW
== END 2020-05-30 20:02 | disposition home or self-care (01) ==
LOC: ER 17:21
DX: R42 Dizziness and giddiness (principal); M25.551 Pain in right hip; I10 Essential (primary) hypertension; F41.9 Anxiety disorder, unspecified; Z98.84 Bariatric surgery status
CPT/HCPCS: 36415; 70450; 71045; 73502; 80053; 80307; 81001; 81025; 82550; 82553; 83880; 84484; 85025; 93005; 99284; J7030

== ENCOUNTER 2022-07-18 20:41 | Emergency (ER) | payer MEDICARE ==
[~2022-07-18] VITALS: Ht 149.9 cm; Wt 112.0 kg
[2022-07-18 21:23] LABS: BASOPHILS # (AUTO) 0.1 (0.0-0.1); EOSINOPHILS # (AUTO) 0.4 (0.0-0.4); HEMATOCRIT 33.8 % (34.2-44.1); HEMOGLOBIN 10.4 g/dL (12.0-16.0); LYMPHOCYTES # (AUTO) 2.3 (1.0-3.2); LYMPHOCYTES % 26.5 % (18.0-39.1); MEAN CORPUSCULAR HEMOGLOBIN 24.9 pg (28-32); MEAN CORPUSCULAR HGB CONC 30.8 g/dL (31-35); MEAN CORPUSCULAR VOLUME 81.1 fL (81-99); MONOCYTES # (AUTO) 0.8 (0.2-0.8); MONOCYTES % 8.8 % (4.4-11.3); NEUTROPHILS # (AUTO) 5.2 (2.1-6.9); NEUTROPHILS % 59.5 % (38.7-80.0); PLATELET COUNT 214 x10e3/uL (140-360); RED BLOOD COUNT 4.17 x10e6/uL (3.6-5.1); RED CELL DISTRIBUTION WIDTH 17.9 % (11.7-14.4)
[2022-07-18 21:43] LABS: ALBUMIN 3.4 g/dL (3.5-5.0); ALBUMIN/GLOBULIN RATIO 0.8 (0.8-2.0); ANION GAP 15.1 mmol/L (8-16); CALCIUM 9.1 mg/dL (8.4-10.2); CREATININE, SERUM 0.71 mg/dL (0.57-1.11); POTASSIUM 5.1 mmol/L (3.5-5.1)
[2022-07-18 21:50] LABS: CREATINE KINASE MB 0.5 ng/mL (0-5.0)
[2022-07-18] MEDS ORDERED: IOPAMIDOL 370 MG/ML 100 ML INFUS..BTL INJ ONE (22:19)
[2022-07-18 23:41] LABS: AMPHETAMINES SCREEN,URINE NEGATIVE (NEGATIVE); BENZODIAZEPINES SCREEN,URINE NEGATIVE (NEGATIVE); PHENCYCLIDINE SCREEN,URINE NEGATIVE (NEGATIVE)
[2022-07-18 23:51] VITALS: BP 131/72
== END 2022-07-18 23:55 | disposition home or self-care (01) ==
LOC: ER 20:49
DX: R55 Syncope and collapse (principal); I10 Essential (primary) hypertension; F41.9 Anxiety disorder, unspecified; M54.9 Dorsalgia, unspecified; G89.29 Other chronic pain; R94.31 Abnormal electrocardiogram [ECG] [EKG]; Z95.810 Presence of automatic (implantable) cardiac defibrillator; Z98.84 Bariatric surgery status; F17.210 Nicotine dependence, cigarettes, uncomplicated
CPT/HCPCS: 36415; 70496; 70498; 71045; 80053; 80307; 81025; 82550; 82553; 83690; 83880; 84484; 85025; 85379; 93005; 99284; Q9967

== ENCOUNTER 2023-01-13 03:12 | Emergency (ER) | payer MEDICARE ==
[~2023-01-13] VITALS: Ht 149.9 cm; Wt 112.0 kg
[2023-01-13] MEDS ORDERED: AMOXICILLIN500 MG PO (03:25)
== END 2023-01-13 03:30 | disposition home or self-care (01) ==
LOC: ER 03:19
DX: H66.93 Otitis media, unspecified, bilateral (principal); I10 Essential (primary) hypertension; F41.9 Anxiety disorder, unspecified; M54.9 Dorsalgia, unspecified; G89.29 Other chronic pain; Z95.810 Presence of automatic (implantable) cardiac defibrillator; Z98.84 Bariatric surgery status
CPT/HCPCS: 99283